=== PATIENT | female | born 1960 | race Caucasian/White ===

== ENCOUNTER → 2016-10-06 | Outpatient (CLI) | payer MEDICARE, OTHER ==
--- NOTE | 2016-10-06 09:04 | XR ---
EXAMINATION TYPE: XR lumbar spine 2 or 3V DATE OF EXAM: 10/06/2016 CLINICAL HISTORY: Low back pain for a few weeks. TECHNIQUE: Frontal and lateral images of the lumbar spine are obtained. COMPARISON: CT abdomen and pelvis September 01, 2014 FINDINGS: There are 5 lumbar type vertebral bodies identified. The lumbar spine shows straightened alignment without evidence of acute fracture or dislocation. Vertebral body heights are within normal limits. There is mild multilevel disc space narrowing. There is mild facet arthropathy in lower lum bar levels. An IVC filter overlies right L2 vertebra. Some vascular calcification of adjacent abdomin al aorta is present. IMPRESSION: Loss of normal lumbar lordosis with mild multilevel degenerative changes redemonstrated, no significant change from recent CT.
== END | disposition home or self-care (01) ==
LOC: RADXRMAIN 08:03
PROVIDERS: ATTEND Family Medicine
DX: M47.816 Spondylosis without myelopathy or radiculopathy, lumbar region (principal)
CPT/HCPCS: 72100

== ENCOUNTER 2016-11-01 17:54 | Emergency (ER) | payer MEDICARE, OTHER ==
[2016-11-01 17:58] VITALS: BP 117/70; PULSE 76; RESP 16; TEMP 98.4
[2016-11-01] MEDS ORDERED: KETOROLAC 60 MG/2 ML VIAL IM STA (18:46)
--- NOTE | 2016-11-01 18:46 | ED ---
General Adult HPI - General Chief complaint: Back Pain/Injury Stated complaint: Back pain Time Seen by Provider: 11/01/16 18:09 Source: patient, RN notes reviewed Mode of arrival: wheelchair Limitations: no limitations - History of Present Illness Initial comments: Patient 55-year-old female who presents emergency room today with chief complaint of chronic back pain. She does admit that she had an x-ray recently was not told results. States been expressing back pain for the last few months. States been taking Percocet along with ibuprofen at home with little relief the symptoms. Denies any bowel or bladder incontinence retention. Denies any saddle anesthesia. Patient is here with her who is also here for his chronic back pain to see if there is anything different that we can do. Patient denies any recent fever, chills, shortness of breath, chest pain , abdominal pain, nausea or vomiting, numbness or tingling, dysuria or hematuria , constipation or diarrhea, headaches or visual changes, or any other complaints. - Related Data Home Medications Medication Instructions Recorded Confirmed Atorvastatin [Lipitor] 20 mg PO DAILY 05/09/14 01/24/16 levETIRAcetam [Keppra] 750 mg PO Q12H 05/09/14 01/24/16 Lisinopril [Lisinopril] 2.5 mg PO DAILY 01/24/16 01/24/16 Previous Rx's Medication Instructions Recorded HYDROcodone/APAP 7.5-325MG [[place] 1 each PO Q4H PRN #60 tab 08/25/14 7.5] metFORMIN HCL [Glucophage] 1,000 mg PO BID-W/MEALS #60 tab 09/03/14 sitaGLIPtin [Januvia] 100 mg PO DAILY #30 tab 09/03/14 Cephalexin [Keflex] 500 mg PO Q12HR 5 Days 01/24/16 Baclofen 10 mg PO TID #20 tab 11/01/16 Allergies Allergy/AdvReac Type Severity Reaction Status Date / Time Iodinated Contrast Media - Allergy Itching Verified 11/01/16 17:58 Oral and [Iodinated Contrast Media - IV Dye] phenytoin sodium Allergy Rash/Hives. Verified 11/01/16 17:58 [From Dilantin] N & V phenytoin sodium extended Allergy Rash/Hives. Verified 11/01/16 17:58 [From Dilantin] N & V vancomycin Allergy Rash/Hives Verified 11/01/16 17:58 MYCIN ANTIBIOTICS Allergy Rash/Hives Uncoded 11/01/16 17:58 Review of Systems ROS Statement: Those systems with pertinent positive or pertinent negative responses have been documented in the HPI. ROS Other: All systems not noted in ROS Statement are negative. Past Medical History Past Medical History: Diabetes Mellitus, Hyperlipidemia, Hypertension Additional Past Medical History / Comment(s): HX CVA AND BRAIN ANERUYSM 2002, SOME MEMORY LOSS- STATES KRISTIAN IS ABLE TO SIGN OWN CONSENTS ; LAST SEIZURE >5 YR < 10 YRS AGO. RECENT RASH UNDER BREASTS, ABD APRON. STATES "HEART. FLATLINE X2 WHEN BRAIN ANEURYSM OCCURRED IN 2002",HIATAL HERNIA , BLEEDING WITH STOOLS. Last Myocardial Infarction Date:: 2002 History of Any Multi-Drug Resistant Organisms: None Reported Past Surgical History: Hernia Repair, Tubal Ligation Additional Past Surgical History / Comment(s): BRAIN STENT 2002. COLONOSCOPY 07/04/14,EGD, KYRA FUNDOPLASTY Past Anesthesia/Blood Transfusion Reactions: No Reported Reaction Past Psychological History: Anxiety, Depression Smoking Status: Current every day smoker Past Alcohol Use History: None Reported Past Drug Use History: None Reported - Past Family History Brother(s) Family Medical History: Cancer Sister(s) Family Medical History: Cancer General Exam - General Exam Comments Initial Comments: General: The patient is awake and alert, in no distress, and does not appear acutely ill. Eye: Pupils are equal, round and reactive to light, extra-ocular movements are intact. No nystagmus. There is normal conjunctiva bilaterally. No signs of icterus. Ears, nose, mouth and throat: There are moist mucous membranes and no oral lesions. Neck: The neck is supple, there is no tenderness or JVD. Cardiovascular: There is a regular rate and rhythm. No murmur, rub or gallop is appreciated. Respiratory: Lungs are clear to auscultation, respirations are non-labored, breath sounds are equal. No wheezes, stridor, rales, or rhonchi. Musculoskeletal: Normal ROM, no tenderness. Strength 5/5. Sensation intact. Pulses equal bilaterally 2+. Neurological: A&O x 3. CN II-XII intact, There are no obvious motor or sensory deficits. Coordination appears grossly intact. Speech is normal. Skin: Skin is warm and dry and no rashes or lesions are noted. Psychiatric: Cooperative, appropriate mood & affect, normal judgment. Limitations: no limitations Course Vital Signs 11/01/16 17:56 Temperature 98.4 F Pulse Rate 76 Respiratory 16 Rate Blood Pressure 117/70 O2 Sat by Pulse 96 Oximetry Medical Decision Making - Medical Decision Making Patient will be discharged home for chronic back pain. has requested to give her Toradol shot as she states that she did not take her ibuprofen today. Patient is advised that she needs to continue to follow-up with family doctor for further evaluation and possible MRI of her lower back for her symptoms. At this time is no new symptoms. There is no bowel or bladder incontinence retention. No saddle anesthesia. Patient will be discharged home. She be given a prescription for muscle relaxer to try. Advised that it may make her drowsy. Patient states understanding. Disposition Clinical Impression: Chronic back pain Disposition: HOME SELF-CARE Condition: Good Instructions: Chronic Back Pain (ED) Additional Instructions: Please use medication as discussed. Please be aware the muscle relaxant may make you drowsy. Please follow-up with family doctor in the next 2 days of symptoms have not improved. Please discuss further options of possible MRI. Please return to emergency room if the symptoms increase or worsen or for any other concerns. Prescriptions: Baclofen 10 mg PO TID #20 tab Referrals: Mat Lua MD [Primary Care Provider] - 1-2 days Time of Disposition: 18:45
== END 2016-11-01 19:29 | disposition home or self-care (01) ==
LOC: EC 17:54
DX: G89.29 Other chronic pain (principal); M54.9 Dorsalgia, unspecified; E78.5 Hyperlipidemia, unspecified; I10 Essential (primary) hypertension; F17.200 Nicotine dependence, unspecified, uncomplicated; Z79.899 Other long term (current) drug therapy; Z91.041 Radiographic dye allergy status; Z88.1 Allergy status to other antibiotic agents; Z88.8 Allergy status to other drugs, medicaments and biological substances
CPT/HCPCS: 99283; 96372; J1885

== ENCOUNTER → 2016-11-14 | Outpatient (CLI) | payer MEDICARE, OTHER ==
--- NOTE | 2016-11-14 12:52 | MR ---
EXAMINATION TYPE: MR lumbar spine wo con DATE OF EXAM: 11/14/2016 12:27 PM COMPARISON: NONE HISTORY: Back pain Multiplanar, MultiSpin echo imaging of the lumbar spine was performed. L1-L2: Normal disc appearance without desiccation. No herniation, protrusion or disc bulging. No ca nal stenosis is present. Foramina are patent bilaterally. L2-L3: There is mild disc desiccation noted. No herniation, protrusion or disc bulging. No canal huber nosis is present. Foramina are patent bilaterally. L3-L4: Normal disc appearance without desiccation. No herniation, protrusion or disc bulging. No ca nal stenosis is present. Foramina are patent bilaterally. L4-L5: Normal disc appearance without desiccation. No herniation, protrusion or disc bulging. No ca nal stenosis is present. Foramina are patent bilaterally. L5-S1: Mild disc desiccation with minimal posterior disc bulge. No herniation or protrusion identifie d. No canal stenosis is present. Foramina are patent bilaterally. Lumbar segments are intact. 5.2 cm right renal cyst has a simple appearance. Conus medullaris has a n ormal appearance. IMPRESSION: 1. Mild degenerative disc disease and minimal disc bulge as discussed.
== END | disposition home or self-care (01) ==
LOC: RADMRIMAIN 11:41
PROVIDERS: ATTEND Family Medicine
DX: M51.26 Other intervertebral disc displacement, lumbar region (principal); M51.36 Other intervertebral disc degeneration, lumbar region
CPT/HCPCS: 72148

== ENCOUNTER 2016-12-03 21:50 | Inpatient (IN) | payer MEDICARE, OTHER ==
--- NOTE | 2016-12-03 23:05 | ED ---
General Adult HPI - General Source: patient Mode of arrival: wheelchair Limitations: no limitations <Domi Gonzales - Last Filed: 12/04/16 01:39> <Manoj Echevarria - Last Filed: 12/04/16 01:57> - General Chief complaint: Skin/Abscess/Foreign Body Stated complaint: Rash and Back Pain Time Seen by Provider: 12/03/16 22:25 - History of Present Illness Initial comments: 55-year-old female patient presents to emergency department today for evaluation of a rash to her bilateral groin, and he beneath her pannus. The patient states that this rash started about 3 weeks ago. She has been treating with hydrocortisone cream, ketoconazole cream, and nystatin powder. The patient states that she has these medications from previous similar infections. 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 Patient states she did see her primary care physician 2 days ago for this, and was started on a 7 day course of Diflucan. Patient states that the rash seems to be spreading and is becoming more painful. He states the redness has moved up onto her abdomen. Patient denies any fever, chills, nausea, vomiting, vaginal itching, vaginal discharge, hematuria, dysuria, urinary urgency, or urinary frequency. Patient does have a history of diabetes. She is oral medications she she does not check her blood sugar. (Domi Gonzales) - Related Data Home Medications Medication Instructions Recorded Confirmed Atorvastatin [Lipitor] 20 mg PO DAILY 05/09/14 01/24/16 levETIRAcetam [Keppra] 750 mg PO Q12H 05/09/14 01/24/16 Lisinopril [Lisinopril] 2.5 mg PO DAILY 01/24/16 01/24/16 Previous Rx's Medication Instructions Recorded HYDROcodone/APAP 7.5-325MG [[place] 1 each PO Q4H PRN #60 tab 08/25/14 7.5] metFORMIN HCL [Glucophage] 1,000 mg PO BID-W/MEALS #60 tab 09/03/14 sitaGLIPtin [Januvia] 100 mg PO DAILY #30 tab 09/03/14 Cephalexin [Keflex] 500 mg PO Q12HR 5 Days 01/24/16 Baclofen 10 mg PO TID #20 tab 11/01/16 Allergies Allergy/AdvReac Type Severity Reaction Status Date / Time Iodinated Contrast- Oral and Allergy Itching Verified 12/03/16 22:06 IV Dye [Iodinated Contrast Media - IV Dye] phenytoin sodium Allergy Rash/Hives. Verified 12/03/16 22:06 [From Dilantin] N & V phenytoin sodium extended Allergy Rash/Hives. Verified 12/03/16 22:06 [From Dilantin] N & V vancomycin Allergy Rash/Hives Verified 12/03/16 22:06 MYCIN ANTIBIOTICS Allergy Rash/Hives Uncoded 11/01/16 17:58 Review of Systems ROS Other: All systems not noted in ROS Statement are negative. <Domi Gonzales - Last Filed: 12/04/16 01:39> ROS Other: All systems not noted in ROS Statement are negative. <Manoj Echevarria - Last Filed: 12/04/16 01:57> ROS Statement: Those systems with pertinent positive or pertinent negative responses have been documented in the HPI. Past Medical History Past Medical History: Diabetes Mellitus, Hyperlipidemia, Hypertension Additional Past Medical History / Comment(s): HX CVA AND BRAIN ANERUYSM 2002, SOME MEMORY LOSS- STATES KRISTIAN IS ABLE TO SIGN OWN CONSENTS ; LAST SEIZURE >5 YR < 10 YRS AGO. RECENT RASH UNDER BREASTS, ABD APRON. STATES "HEART. FLATLINE X2 WHEN BRAIN ANEURYSM OCCURRED IN 2002",HIATAL HERNIA , BLEEDING WITH STOOLS. Last Myocardial Infarction Date:: 2002 History of Any Multi-Drug Resistant Organisms: None Reported Past Surgical History: Hernia Repair, Tubal Ligation Additional Past Surgical History / Comment(s): BRAIN STENT 2002. COLONOSCOPY 07/04/14,EGD, KYRA FUNDOPLASTY Past Anesthesia/Blood Transfusion Reactions: No Reported Reaction Past Psychological History: Anxiety, Depression Smoking Status: Current every day smoker Past Alcohol Use History: None Reported Past Drug Use History: None Reported - Past Family History Brother(s) Family Medical History: Cancer Sister(s) Family Medical History: Cancer <Domi Gonzales - Last Filed: 12/04/16 01:39> General Exam Limitations: no limitations General appearance: alert, in no apparent distress Head exam: Present: atraumatic, normocephalic, normal inspection Eye exam: Present: normal appearance, PERRL, EOMI. Absent: scleral icterus, conjunctival injection, periorbital swelling ENT exam: Present: normal exam, mucous membranes moist Neck exam: Present: normal inspection. Absent: tenderness, meningismus, lymphadenopathy Respiratory exam: Present: normal lung sounds bilaterally. Absent: respiratory distress, wheezes, rales, rhonchi, stridor Cardiovascular Exam: Present: regular rate, normal rhythm, normal heart sounds. Absent: systolic murmur, diastolic murmur, rubs, gallop, clicks GI/Abdominal exam: Present: soft, normal bowel sounds, other (Patient exhibits extensive erythema, moist, macerated skin beneath the pannus with erythema extending up onto the abdomen. ). Absent: distended, tenderness, guarding, rebound, rigid Extremities exam: Present: other (Erythema and skin rash as described in the abdominal exam extends to bilateral groin) Back exam: Present: normal inspection Neurological exam: Present: alert, oriented X3, CN II-XII intact Psychiatric exam: Present: normal affect, normal mood Skin exam: Present: warm, dry, intact, normal color, rash (As previously described) <Domi Gonzales - Last Filed: 12/04/16 01:39> Course <Domi Gonzales - Last Filed: 12/04/16 01:39> <Manoj Echevarria - Last Filed: 12/04/16 01:57> Vital Signs 12/03/16 12/04/16 12/04/16 22:02 01:33 01:50 Temperature 97.9 F 97.6 F 97.9 F Pulse Rate 93 82 78 Respiratory 18 15 16 Rate Blood Pressure 119/74 157/70 128/78 O2 Sat by Pulse 96 99 99 Oximetry - Reevaluation(s) Reevaluation #1: 12/04/16 01:57 I did personally do a [id number] evaluation the patient and he is demonstrated evidence of cellulitis of the abdominal area below her panniculus. Patient will be admitted (Manoj Echevarria) Medical Decision Making - Lab Data Result diagrams: 12/04/16 00:38 12/04/16 00:38 <Domi Gonzales - Last Filed: 12/04/16 01:39> - Lab Data Result diagrams: 12/04/16 00:38 12/04/16 00:38 <Manoj Echevarria - Last Filed: 12/04/16 01:57> - Medical Decision Making 55-year-old female patient presented today for evaluation of a rash beneath her pannus and on her abdomen. Patient does appear to have a candidal infection to her pannus as well as a superimposed cellulitis over her abdomen. White blood cell count is elevated to 13.1. Patient was started on Ancef IV. Patient will be admitted to Dr. Lua's service for continued IV antibiotics as well as oral Diflucan and nystatin powder for the rash. (Domi Gonzales) - Lab Data Lab Results 12/04/16 12/04/16 Range/Units 00:38 00:38 WBC 13.4 H (3.8-10.6) k/uL RBC 4.51 (3.80-5.40) m/uL Hgb 14.0 (11.4-16.0) gm/dL Hct 42.9 (34.0-46.0) % MCV 95.2 (80.0-100.0) fL MCH 31.1 (25.0-35.0) pg MCHC 32.6 (31.0-37.0) g/dL RDW 15.0 (11.5-15.5) % Plt Count 295 (150-450) k/uL Neutrophils % 62 % Lymphocytes % 28 % Monocytes % 6 % Eosinophils % 3 % Basophils % 1 % Neutrophils # 8.3 H (1.3-7.7) k/uL Lymphocytes # 3.7 (1.0-4.8) k/uL Monocytes # 0.7 (0-1.0) k/uL Eosinophils # 0.4 (0-0.7) k/uL Basophils # 0.1 (0-0.2) k/uL Sodium 140 (137-145) mmol/L Potassium 4.1 (3.5-5.1) mmol/L Chloride 107 (98-107) mmol/L Carbon Dioxide 23 (22-30) mmol/L Anion Gap 10 mmol/L BUN 7 (7-17) mg/dL Creatinine 0.50 L (0.52-1.04) mg/dL Est GFR (MDRD) Af Amer >60 (>60 ml/min/1.73 sqM) Est GFR (MDRD) Non-Af >60 (>60 ml/min/1.73 sqM) Glucose 134 H (74-99) mg/dL Calcium 9.3 (8.4-10.2) mg/dL Total Bilirubin 0.6 (0.2-1.3) mg/dL AST 24 (14-36) U/L ALT 40 (9-52) U/L Alkaline Phosphatase 127 H (38-126) U/L Total Protein 7.4 (6.3-8.2) g/dL Albumin 3.8 (3.5-5.0) g/dL Disposition Decision to Admit Reason: Admit from EC Decision Date: 12/04/16 Decision Time: 01:35 <Domi Gonzales - Last Filed: 12/04/16 01:39> <Manoj Echevarria - Last Filed: 12/04/16 01:57> Clinical Impression: Cutaneous candidiasis, Panniculitis, Cellulitis Disposition: ADMITTED IP TO THIS HOSP
[2016-12-04] MEDS ORDERED: SODIUM CHLORIDE 0.9% 500 ML IV STA (00:01)
[2016-12-04] MEDS ORDERED: ceFAZolin 1,000 MG in DEXTROSE/WATER 1 50ML.BAG IVPB STA (00:03)
[2016-12-04] MEDS: ceFAZolin 1,000 MG in DEXTROSE/WATER 1 50ML.BAG IVPB SCH ×3 (00:36→16:30)
[2016-12-04 00:47] LABS: Basophils # (A) 0.1 k/uL (0-0.2); Basophils % (A) 1 %; CH 31.9; CHCM 33.6; Eosinophils # (A) 0.4 k/uL (0-0.7); Eosinophils % (A) 3 %; HCT 42.9 % (34.0-46.0); HDW 2.32; Luc # (Auto) 0.23; Luc % (Auto) 2; Lymphocytes # (A) 3.7 k/uL (1.0-4.8); Lymphocytes % (A) 28 %; MCH 31.1 pg (25.0-35.0); MCHC 32.6 g/dL (31.0-37.0); MCV 95.2 fL (80.0-100.0); Mean Platelet Volume 6.7; Monocytes # (A) 0.7 k/uL (0-1.0); Monocytes % (A) 6 %; Neutrophils # (A) 8.3 k/uL (1.3-7.7); Neutrophils % (A) 62 %; RBC 4.51 m/uL (3.80-5.40); WBC 13.4 k/uL (3.8-10.6); WBC (Perox) 12.59
[2016-12-04 00:57] LABS: ALT 40 U/L (9-52); AST 24 U/L (14-36); Alkaline Phosphatase 127 U/L (38-126); Anion Gap 10 mmol/L; Blood Urea Nitrogen 7 mg/dL (7-17); Calcium 9.3 mg/dL (8.4-10.2); Carbon Dioxide 23 mmol/L (22-30); Chloride 107 mmol/L (98-107); Glucose 134 mg/dL (74-99); Non-African American GFR(MDRD) >60 (>60 ml/min/1.73 sqM); Potassium 4.1 mmol/L (3.5-5.1); Sodium 140 mmol/L (137-145); Total Bilirubin 0.6 mg/dL (0.2-1.3); Total Protein 7.4 g/dL (6.3-8.2)
[2016-12-04] MEDS ORDERED: NALOXONE 0.4 MG/ML 1 ML VIAL IV PRN (01:30)
[2016-12-04 07:37] LABS: Glucose,Whole Blood 120 mg/dL (75-99)
[2016-12-04] MEDS: FLUCONAZOLE 150 MG TAB PO SCH (08:38)
[2016-12-04] MEDS: NYSTATIN 100,000 UNIT/GM POWD 15 GM TOPICAL SCH ×3 (08:38→22:37)
[2016-12-04 12:14] LABS: Glucose,Whole Blood 135 mg/dL (75-99)
[2016-12-04] MEDS: oxyCODONE-APAP 5-325MG 1 EACH TAB PO PRN ×2 (13:13→23:52)
[2016-12-04] MEDS: INSULIN LISPRO (humaLOG) 300 UNIT/3 ML VIAL SQ SCH ×3 (13:43→22:36)
[2016-12-04] MEDS ORDERED: TEMAZEPAM 15 MG CAP PO PRN (16:26)
[2016-12-04] MEDS ORDERED: ALPRAZolam 0.25 MG TAB PO PRN (16:26)
[2016-12-04 17:10] LABS: Glucose,Whole Blood 156 mg/dL (75-99)
[2016-12-04] MEDS ORDERED: INSULIN LISPRO (humaLOG) 300 UNIT/3 ML VIAL SQ SCH (17:30)
[2016-12-04 20:10] LABS: Glucose,Whole Blood 181 mg/dL (75-99)
[2016-12-04 21:41] LABS: Hemoglobin A1C 6.8 % (4.2-6.1)
[2016-12-04] MEDS: HEPARIN SODIUM,PORCINE 5,000 UNIT/ML 1 ML VIAL SQ SCH (22:37)
[2016-12-05] MEDS: ceFAZolin 1,000 MG in DEXTROSE/WATER 1 50ML.BAG IVPB SCH ×4 (02:58→23:11)
[2016-12-05 07:32] LABS: Glucose,Whole Blood 155 mg/dL (75-99)
[2016-12-05 07:35] LABS: Basophils % (A) 0 %; CH 31.4; CHCM 33.4; Eosinophils # (A) 0.3 k/uL (0-0.7); Eosinophils % (A) 3 %; HDW 2.38; HGB 14.1 gm/dL (11.4-16.0); Luc # (Auto) 0.17; Luc % (Auto) 2; Lymphocytes # (A) 2.4 k/uL (1.0-4.8); Lymphocytes % (A) 26 %; MCH 32.4 pg (25.0-35.0); MCHC 34.3 g/dL (31.0-37.0); MCV 94.5 fL (80.0-100.0); Mean Platelet Volume 6.7; Monocytes # (A) 0.4 k/uL (0-1.0); Monocytes % (A) 5 %; Neutrophils # (A) 5.8 k/uL (1.3-7.7); Neutrophils % (A) 64 %; RBC 4.34 m/uL (3.80-5.40); RDW 14.3 % (11.5-15.5); WBC 9.1 k/uL (3.8-10.6); WBC (Perox) 8.93
[2016-12-05] MEDS: NYSTATIN 100,000 UNIT/GM POWD 15 GM TOPICAL SCH ×3 (08:07→21:05)
[2016-12-05] MEDS: HEPARIN SODIUM,PORCINE 5,000 UNIT/ML 1 ML VIAL SQ SCH ×2 (08:07→21:03)
[2016-12-05] MEDS: ATORVASTATIN 20 MG TAB PO SCH (08:08)
[2016-12-05] MEDS: metFORMIN 500 MG TAB PO SCH ×2 (08:08→17:22)
[2016-12-05] MEDS: LINAGLIPTIN 5 MG TABLET PO SCH (08:08)
[2016-12-05] MEDS: LISINOPRIL 2.5 MG TAB PO SCH (08:08)
[2016-12-05] MEDS: FLUCONAZOLE 150 MG TAB PO SCH (08:08)
[2016-12-05] MEDS: INSULIN LISPRO (humaLOG) 300 UNIT/3 ML VIAL SQ SCH ×4 (08:11→21:26)
--- NOTE | 2016-12-05 08:27 | P.HPIM ---
History of Present Illness H&P Date: 12/05/16 Review of Systems Constitutional: Reports fever Eyes: denies blurred vision, denies pain Ears, nose, mouth and throat: Denies headache, Denies sore throat Cardiovascular: Denies chest pain, Denies shortness of breath Respiratory: Denies cough Gastrointestinal: Denies abdominal pain, Denies diarrhea, Denies nausea, Denies vomiting Genitourinary: Denies dysuria, Denies hematuria Integumentary: Reports rash, Reports sores Past Medical History Past Medical History: Diabetes Mellitus, Hyperlipidemia, Hypertension Additional Past Medical History / Comment(s): HX CVA AND BRAIN ANERUYSM 2002, SOME MEMORY LOSS- STATES KRISTIAN IS ABLE TO SIGN OWN CONSENTS ; LAST SEIZURE >5 YR < 10 YRS AGO. RECENT RASH UNDER BREASTS, ABD APRON. STATES "HEART. FLATLINE X2 WHEN BRAIN ANEURYSM OCCURRED IN 2002",HIATAL HERNIA , BLEEDING WITH STOOLS. Last Myocardial Infarction Date:: 2002 History of Any Multi-Drug Resistant Organisms: None Reported Past Surgical History: Hernia Repair, Tubal Ligation Additional Past Surgical History / Comment(s): BRAIN STENT 2002. COLONOSCOPY 07/04/14,EGD, KYRA FUNDOPLASTY Past Anesthesia/Blood Transfusion Reactions: No Reported Reaction Past Psychological History: Anxiety, Depression Smoking Status: Current every day smoker Past Alcohol Use History: None Reported Additional Past Alcohol Use History / Comment(s): STARTED SMOKING AT [employer]OX 18 Past Drug Use History: None Reported - Past Family History Brother(s) Family Medical History: Cancer Sister(s) Family Medical History: Cancer Medications and Allergies Home Medications Medication Instructions Recorded Confirmed Type Atorvastatin [Lipitor] 20 mg PO DAILY 05/09/14 12/04/16 History levETIRAcetam [Keppra] 750 mg PO Q12H 05/09/14 12/04/16 History Lisinopril [Lisinopril] 2.5 mg PO DAILY 01/24/16 12/04/16 History oxyCODONE-APAP 5-325MG [Percocet 1 tab PO Q6HR PRN 12/04/16 12/04/16 History 5-325 mg] sitaGLIPtin PHOS/metFORMIN HCL 1 tab PO DAILY 12/04/16 12/04/16 History [Janumet Xr 100-1,000 mg Tablet] Allergies Allergy/AdvReac Type Severity Reaction Status Date / Time Iodinated Contrast- Oral and Allergy Itching Verified 12/04/16 08:53 IV Dye [Iodinated Contrast Media - IV Dye] phenytoin sodium Allergy Rash/Hives. Verified 12/04/16 08:53 [From Dilantin] N & V phenytoin sodium extended Allergy Rash/Hives. Verified 12/04/16 08:53 [From Dilantin] N & V vancomycin Allergy Rash/Hives Verified 12/04/16 08:53 MYCIN ANTIBIOTICS Allergy Rash/Hives Uncoded 11/01/16 17:58 Physical Exam Vitals: Vital Signs Temp Pulse Resp BP Pulse Ox 12/05/16 07:00 96.8 F L 79 16 148/78 96 12/05/16 02:27 98 F 77 16 110/71 91 L 12/04/16 19:00 97.0 F L 83 16 127/72 96 12/04/16 15:00 98.0 F 99 16 111/72 95 Intake and Output 12/04/16 12/05/16 12/05/16 22:59 06:59 14:59 Intake Total 530 1280 Balance 530 1280 Intake: Intake, IV Titration 50 800 Amount ceFAZolin 1,000 mg In 50 800 Dextrose/Water 1 50ml.bag @ 100 mls/hr IVPB Q8HR [facility] Rx#:[id number] Oral 480 480 Other: Voiding Method Toilet - Constitutional General appearance: obese - EENT Eyes: EOMI - Neck Neck: no lymphadenopathy - Respiratory Respiratory: bilateral: CTA - Cardiovascular Rhythm: regular Heart sounds: normal: S1, S2 - Gastrointestinal General gastrointestinal: soft, no tenderness - Integumentary Right inguinal panniculitis Integumentary: cellulitis - Neurologic Neurologic: CNII-XII intact Results CBC & Chem 7: 12/05/16 07:07 12/04/16 00:38 Labs: Abnormal Lab Results - Last 24 Hours (Table) 12/04/16 12/04/16 12/04/16 Range/Units 00:38 12:09 17:00 POC Glucose (mg/dL) 135 H 156 H (75-99) mg/dL Hemoglobin A1c 6.8 H (4.2-6.1) % 12/04/16 12/05/16 Range/Units 20:06 07:24 POC Glucose (mg/dL) 181 H 155 H (75-99) mg/dL Hemoglobin A1c (4.2-6.1) % Microbiology - Last 24 Hours (Table) 12/04/16 00:38 Blood Culture - Preliminary Blood No Growth after 24 hours Thrombosis Risk Factor Assmnt - Choose All That Apply Each Factor Represents 1 point: Acute CA, Age 41-60 years, History of prior major surgery (<1month), Obesity (BMI >25) Other congenital or acquired thrombophilia - If yes, enter type in comment: No Each Risk Factor Represents 5 Points: Major surgery lasting over 3 hours Thrombosis Risk Factor Assessment Total Risk Factor Score: 9 Thrombosis Risk Factor Assessment Level: High Risk Assessment and Plan (1) Cellulitis Status: Acute (2) Cutaneous candidiasis Status: Acute (3) Panniculitis Status: Acute (4) CVA, old, cognitive deficits Status: Acute (5) Diabetes Status: Acute (6) GERD (gastroesophageal reflux disease) Status: Acute Plan: We'll going continue appropriate topical and IV antibiotic treatment. Place on sliding scale if necessary. Check CBC and CMP in a.m. We'll go ahead and consult infectious disease necessary.
[2016-12-05] MEDS ORDERED: ONDANSETRON 4 MG/2 ML VIAL IVP PRN (08:28)
[2016-12-05 08:45] LABS: Anion Gap 11 mmol/L; Blood Urea Nitrogen 6 mg/dL (7-17); Calcium 8.9 mg/dL (8.4-10.2); Carbon Dioxide 21 mmol/L (22-30); Chloride 111 mmol/L (98-107); Glucose 136 mg/dL (74-99); Non-African American GFR(MDRD) >60 (>60 ml/min/1.73 sqM); Potassium 3.9 mmol/L (3.5-5.1); Sodium 143 mmol/L (137-145)
[2016-12-05 10:35] VITALS: BMI 34.8
[2016-12-05 11:43] LABS: Glucose,Whole Blood 181 mg/dL (75-99)
[2016-12-05] MEDS: oxyCODONE-APAP 5-325MG 1 EACH TAB PO PRN (13:49)
--- NOTE | 2016-12-05 14:59 | HP ---
CHIEF COMPLAINT: Pain and swelling and cellulitis of both groins. HISTORY OF PRESENT ILLNESS: This 55-year-old woman with the past medical history of multiple medical problems including diabetes mellitus, hypertension, hyperlipidemia, being followed by Dr. Lua in the outpatient setting, was not feeling well over the past several weeks. The patient had a significant rash on both groins beneath her pannus and because of lack of improvement with multiple medications, the patient was admitted to [facility] for further evaluation and treatment. There is no history of any fever or rigors. No history of headache, loss of consciousness or seizures. PAST MEDICAL HISTORY: History of diabetes, hypertension, hyperlipidemia, history of brain aneurysm. MEDICATIONS PRIOR TO ADMISSION: Home medications are: 1. Janumet one p.o. daily. 2. Oxycodone one tablet q6h p.r.n. 3. Keppra 750 p.o. b.i.d. 4. Lisinopril 2.5 mg. 5. Lipitor 20 mg p.o. daily. ALLERGIES: ( ) CONTRAST, PHENYTOIN, VANCOMYCIN, MYCIN ANTIBIOTICS. FAMILY HISTORY: History of cancer in the family. SOCIAL HISTORY: History of smoking. Currently no history of alcohol intake. REVIEW OF SYSTEMS: ENT: No diminished hearing or vision. CARDIOVASCULAR: No angina or palpitation. RESPIRATORY: No cough. GI: As mentioned earlier. : No dysuria. NERVOUS SYSTEM: No numbness or weakness. IMMUNOLOGY/ALLERGY: No asthma, hayfever. MUSCULOSKELETAL: As mentioned earlier. HEMATOLOGY: No history of anemia. ENDOCRINE: Diabetes. CONSTITUTIONAL: As mentioned earlier. PSYCHIATRIC: As mentioned earlier. PHYSICAL EXAMINATION: Alert and oriented x3. Pulse 67, blood pressure 124/64, respirations 15, temperature 98.2, pulse ox 97% on room air. HEENT: Conjunctivae normal. Oral mucosa moist. NECK: No jugular venous distention. No thyroid enlargement, no lymph node enlargement. CARDIOVASCULAR: S1/.S2. RESPIRATIONS: Diminished breath sounds at the bases. A few scattered rhonchi. No crackles.. ABDOMEN: Soft. LEGS: No edema. NERVOUS SYSTEM: No focal weakness. LYMPHATICS. No lymph node palpable in neck or axillae. SKIN: Abdomen, extensive erythema, tenderness and rash in the intertrigo folds present in both groins area. LABS: WBC 13.4. Glucose noted. ASSESSMENT: 1. Acute bilateral intertrigo candidiasis with cellulitis. 2. Diabetes mellitus. 3. Hypertension. 4. Hyperlipidemia. 5. Anxiety and depression. RECOMMENDATIONS AND DISCUSSION: This 55-year-old woman presented with multiple complex medical issues, will monitor the patient closely, continue current medication, continue symptomatic treatment. Otherwise, I recommend a combination of antibiotics and antifungals. Continue the rest of the medications. Dr. Lua will follow tomorrow. Further recommendations to follow. MTDD
[2016-12-05 17:07] LABS: Glucose,Whole Blood 107 mg/dL (75-99)
[2016-12-05 21:15] LABS: Glucose,Whole Blood 122 mg/dL (75-99)
[2016-12-06 06:54] LABS: Glucose,Whole Blood 118 mg/dL (75-99)
[2016-12-06 07:26] LABS: CH 31.1; CHCM 32.5; HCT 41.9 % (34.0-46.0); HGB 13.7 gm/dL (11.4-16.0); MCH 31.4 pg (25.0-35.0); MCHC 32.8 g/dL (31.0-37.0); MCV 95.9 fL (80.0-100.0); Mean Platelet Volume 6.5; RBC 4.37 m/uL (3.80-5.40); RDW 14.2 % (11.5-15.5); WBC 9.3 k/uL (3.8-10.6)
[2016-12-06] MEDS: INSULIN LISPRO (humaLOG) 300 UNIT/3 ML VIAL SQ SCH ×4 (08:02→21:14)
[2016-12-06 08:04] LABS: ALT 35 U/L (9-52); AST 23 U/L (14-36); Alkaline Phosphatase 110 U/L (38-126); Anion Gap 9 mmol/L; Blood Urea Nitrogen 7 mg/dL (7-17); Calcium 9.3 mg/dL (8.4-10.2); Carbon Dioxide 24 mmol/L (22-30); Chloride 110 mmol/L (98-107); Glucose 113 mg/dL (74-99); Non-African American GFR(MDRD) >60 (>60 ml/min/1.73 sqM); Potassium 4.2 mmol/L (3.5-5.1); Sodium 143 mmol/L (137-145); Total Bilirubin 0.3 mg/dL (0.2-1.3)
--- NOTE | 2016-12-06 08:44 | P.PN ---
Objective - Vital Signs Vital signs: Vital Signs Temp 97.1 F L 12/06/16 02:51 Pulse 68 12/06/16 02:51 Resp 16 12/06/16 02:51 BP 131/65 12/06/16 02:51 Pulse Ox 98 12/06/16 02:51 Intake & Output 12/05/16 12/06/16 12/06/16 18:59 06:59 18:59 Intake Total 487 Balance 487 Weight 80.9 kg Intake: Intake, IV Titration 50 Amount ceFAZolin 1,000 mg In 50 Dextrose/Water 1 50ml.bag @ 100 mls/hr IVPB Q8HR VICKY Rx#:[id number] Oral 437 Other: Voiding Method Toilet # Voids 4 1 - Constitutional General appearance: Present: obese - EENT Eyes: Absent: abnormal pupil - Integumentary Integumentary Comment(s): The patient has intertriginous rash and also a new finding under the right breast. Do feel that it is candidiasis - Neurologic Neurologic: Present: CNII-XII intact - Labs CBC & Chem 7: 12/06/16 06:56 12/06/16 06:56 Labs: Abnormal Lab Results - Last 24 Hours (Table) 12/05/16 12/05/16 12/05/16 Range/Units 07:07 11:41 16:59 Chloride 111 H (98-107) mmol/L Carbon Dioxide 21 L (22-30) mmol/L BUN 6 L (7-17) mg/dL Creatinine 0.41 L (0.52-1.04) mg/dL Glucose 136 H (74-99) mg/dL POC Glucose (mg/dL) 181 H 107 H (75-99) mg/dL 12/05/16 12/06/16 12/06/16 Range/Units 21:10 06:47 06:56 Chloride 110 H (98-107) mmol/L Carbon Dioxide (22-30) mmol/L BUN (7-17) mg/dL Creatinine 0.47 L (0.52-1.04) mg/dL Glucose 113 H (74-99) mg/dL POC Glucose (mg/dL) 122 H 118 H (75-99) mg/dL Microbiology - Last 24 Hours (Table) 12/04/16 00:38 Blood Culture - Preliminary Blood No Growth after 48 hours Assessment and Plan (1) Cellulitis Status: Acute (2) Cutaneous candidiasis Status: Acute (3) Panniculitis Status: Acute (4) CVA, old, cognitive deficits Status: Acute (5) Diabetes Status: Acute (6) GERD (gastroesophageal reflux disease) Status: Acute Plan: Continue with nystatin. Pain control with Percocet at this time. We'll continue to follow. Hopefully we can discharge in the next 2-3 days. Check CBC and CMP in a.m. Time with Patient: Less than 30
[2016-12-06] MEDS: metFORMIN 500 MG TAB PO SCH ×2 (09:25→20:00)
[2016-12-06] MEDS: LINAGLIPTIN 5 MG TABLET PO SCH (09:25)
[2016-12-06] MEDS: ceFAZolin 1,000 MG in DEXTROSE/WATER 1 50ML.BAG IVPB SCH ×2 (09:25→16:56)
[2016-12-06] MEDS: FLUCONAZOLE 150 MG TAB PO SCH (09:26)
[2016-12-06] MEDS: LISINOPRIL 2.5 MG TAB PO SCH (09:26)
[2016-12-06] MEDS: NYSTATIN 100,000 UNIT/GM POWD 15 GM TOPICAL SCH ×3 (09:26→21:15)
[2016-12-06] MEDS: HEPARIN SODIUM,PORCINE 5,000 UNIT/ML 1 ML VIAL SQ SCH ×2 (09:26→20:23)
[2016-12-06] MEDS: ATORVASTATIN 20 MG TAB PO SCH (09:26)
[2016-12-06] MEDS: oxyCODONE-APAP 5-325MG 1 EACH TAB PO PRN (09:46)
[2016-12-06 12:09] LABS: Glucose,Whole Blood 82 mg/dL (75-99)
[2016-12-06 16:32] LABS: Glucose,Whole Blood 185 mg/dL (75-99)
[2016-12-06 20:49] LABS: Glucose,Whole Blood 131 mg/dL (75-99)
[2016-12-07] MEDS: ceFAZolin 1,000 MG in DEXTROSE/WATER 1 50ML.BAG IVPB SCH ×4 (00:06→23:42)
[2016-12-07 07:13] LABS: Glucose,Whole Blood 181 mg/dL (75-99)
[2016-12-07 07:28] LABS: CH 31.8; CHCM 33.2; HCT 44.5 % (34.0-46.0); HDW 2.32; HGB 14.1 gm/dL (11.4-16.0); MCH 30.5 pg (25.0-35.0); MCHC 31.6 g/dL (31.0-37.0); MCV 96.4 fL (80.0-100.0); Mean Platelet Volume 6.7; RBC 4.62 m/uL (3.80-5.40); RDW 14.8 % (11.5-15.5); WBC 8.8 k/uL (3.8-10.6)
[2016-12-07 07:43] LABS: ALT 40 U/L (9-52); AST 25 U/L (14-36); Alkaline Phosphatase 118 U/L (38-126); Anion Gap 13 mmol/L; Blood Urea Nitrogen 7 mg/dL (7-17); Calcium 9.2 mg/dL (8.4-10.2); Carbon Dioxide 21 mmol/L (22-30); Chloride 107 mmol/L (98-107); Glucose 166 mg/dL (74-99); Non-African American GFR(MDRD) >60 (>60 ml/min/1.73 sqM); Sodium 141 mmol/L (137-145); Total Bilirubin 0.4 mg/dL (0.2-1.3); Total Protein 7.4 g/dL (6.3-8.2)
[2016-12-07] MEDS: INSULIN LISPRO (humaLOG) 300 UNIT/3 ML VIAL SQ SCH ×4 (09:06→20:45)
[2016-12-07] MEDS: HEPARIN SODIUM,PORCINE 5,000 UNIT/ML 1 ML VIAL SQ SCH ×2 (09:08→20:45)
[2016-12-07] MEDS: LINAGLIPTIN 5 MG TABLET PO SCH (09:08)
[2016-12-07] MEDS: NYSTATIN 100,000 UNIT/GM POWD 15 GM TOPICAL SCH ×3 (09:09→20:46)
[2016-12-07] MEDS: metFORMIN 500 MG TAB PO SCH ×2 (09:09→18:27)
[2016-12-07] MEDS: ATORVASTATIN 20 MG TAB PO SCH (09:10)
[2016-12-07] MEDS: FLUCONAZOLE 150 MG TAB PO SCH (09:10)
[2016-12-07] MEDS: LISINOPRIL 2.5 MG TAB PO SCH (09:10)
[2016-12-07 11:28] LABS: Glucose,Whole Blood 127 mg/dL (75-99)
[2016-12-07] MEDS: oxyCODONE-APAP 5-325MG 1 EACH TAB PO PRN (11:46)
[2016-12-07 17:05] LABS: Glucose,Whole Blood 131 mg/dL (75-99)
[2016-12-07 20:45] LABS: Glucose,Whole Blood 163 mg/dL (75-99)
[2016-12-08 07:32] LABS: Glucose,Whole Blood 115 mg/dL (75-99)
[2016-12-08] MEDS: INSULIN LISPRO (humaLOG) 300 UNIT/3 ML VIAL SQ SCH ×4 (08:06→21:54)
[2016-12-08] MEDS: HEPARIN SODIUM,PORCINE 5,000 UNIT/ML 1 ML VIAL SQ SCH ×2 (08:12→21:56)
[2016-12-08] MEDS: metFORMIN 500 MG TAB PO SCH ×2 (08:13→17:58)
[2016-12-08] MEDS: FLUCONAZOLE 150 MG TAB PO SCH (08:13)
[2016-12-08] MEDS: NYSTATIN 100,000 UNIT/GM POWD 15 GM TOPICAL SCH ×3 (08:13→21:56)
[2016-12-08] MEDS: LINAGLIPTIN 5 MG TABLET PO SCH (08:13)
[2016-12-08] MEDS: ATORVASTATIN 20 MG TAB PO SCH (08:13)
[2016-12-08] MEDS: LISINOPRIL 2.5 MG TAB PO SCH (08:13)
[2016-12-08] MEDS: ceFAZolin 1,000 MG in DEXTROSE/WATER 1 50ML.BAG IVPB SCH ×2 (08:50→17:07)
[2016-12-08] MEDS: oxyCODONE-APAP 5-325MG 1 EACH TAB PO PRN (10:53)
[2016-12-08 11:32] LABS: Glucose,Whole Blood 64 mg/dL (75-99)
[2016-12-08 11:38] LABS: Glucose,Whole Blood 78 mg/dL (75-99)
[2016-12-08 16:16] LABS: Glucose,Whole Blood 158 mg/dL (75-99)
--- NOTE | 2016-12-08 19:39 | P.PN ---
Subjective Date of service 12/08/2016 Progress note being dictated for Dr. Velez Interval history: This is a 56-year-old female admitted with panniculitis, breast cellulitis and multiple other medical issues. Maintained on ceftezole and, Diflucan and Mycostatin powder. Significant clinical improvement. This morning, after consuming approximately 50% of breakfast, had a hypoglycemic episode, symptomatic, received OJ and stabilized. Also complained of lightheadedness, dizziness after receiving pain medication. Denies chest pain, palpitations or increasing shortness of breath. Objective - Vital Signs Vital signs: Vital Signs Temp 97.4 F L 12/08/16 13:56 Pulse 63 12/08/16 13:56 Resp 18 12/08/16 13:56 BP 112/66 12/08/16 13:56 Pulse Ox 94 L 12/08/16 13:56 Intake & Output 12/08/16 12/08/16 12/09/16 06:59 18:59 06:59 Intake Total 880 1320 Balance 880 1320 Intake: Oral 880 1320 Other: Voiding Method Toilet # Voids 4 2 - Exam PHYSICAL EXAM: VITAL SIGNS: [As above sitting up in chair, no acute distress] GENERAL: [] HEENT: [Pupils equal conjunctiva normal. Oral mucosa moist] NECK: [Supple, no JVD] RESPIRATORY EFFORT:[ Normal] LUNGS: [Clear, no wheezes rhonchi or crackles] CARDIOVASCULAR[ regular S1 and S2, no murmurs rubs or gallops] GI: [Abdomen soft, nontender, positive bowel sounds.] PSYCH: [Alert and oriented -3, mood and affect normal.] SKIN: [Cellulitis, candidiasis appearing rash under breasts, Groins/ panus area minimal erythema /pinkness, minimally tender.] NEURO: No focal deficits - Labs CBC & Chem 7: 12/07/16 06:57 12/07/16 06:57 Labs: Abnormal Lab Results - Last 24 Hours (Table) 12/07/16 12/08/16 12/08/16 Range/Units 20:22 07:08 11:20 POC Glucose (mg/dL) 163 H 115 H 64 L (75-99) mg/dL 12/08/16 Range/Units 16:09 POC Glucose (mg/dL) 158 H (75-99) mg/dL Microbiology - Last 24 Hours (Table) 12/04/16 00:38 Blood Culture - Preliminary Blood No Growth after 96 hours Assessment and Plan Plan: (1) Cellulitis Status: Acute (2) Cutaneous candidiasis Status: Acute (3) Panniculitis Status: Acute (4) CVA, old, cognitive deficits Status: Acute (5) Diabetes Status: Acute (6) GERD (gastroesophageal reflux disease) Status: Acute Plan: Continue on current medication regime , antibiotics, nystatin ,monitoring and symptomatic treatment. Orthostatic vital signs were ordered every shift given complaints of lightheadedness and dizziness. Pain medication dose decreased. Metformin discontinued. Close monitoring of Accu-Cheks. Dietary consult. Discharge planning in progress for tomorrow. The impression and plan of care has been dictated as directed. : I performed a H&P examination of this patient and discussed the same with the dictator. I agree with the dictator's note. Any additional findings/opinions/ etc. will be noted.
[2016-12-08 20:15] VITALS: RESP 16
[2016-12-08 20:21] LABS: Glucose,Whole Blood 128 mg/dL (75-99)
[2016-12-08] MEDS: HYDROcodone/APAP 15 ML SOLUTION PO PRN (22:06)
[2016-12-09] MEDS: ceFAZolin 1,000 MG in DEXTROSE/WATER 1 50ML.BAG IVPB SCH ×2 (00:58→09:25)
[2016-12-09 07:16] LABS: Glucose,Whole Blood 114 mg/dL (75-99)
[2016-12-09] MEDS: INSULIN LISPRO (humaLOG) 300 UNIT/3 ML VIAL SQ SCH ×2 (07:47→12:19)
[2016-12-09] MEDS: ATORVASTATIN 20 MG TAB PO SCH (09:08)
[2016-12-09] MEDS: HEPARIN SODIUM,PORCINE 5,000 UNIT/ML 1 ML VIAL SQ SCH (09:08)
[2016-12-09] MEDS: LINAGLIPTIN 5 MG TABLET PO SCH (09:08)
[2016-12-09] MEDS: LISINOPRIL 2.5 MG TAB PO SCH (09:08)
[2016-12-09] MEDS: NYSTATIN 100,000 UNIT/GM POWD 15 GM TOPICAL SCH (09:09)
[2016-12-09] MEDS: FLUCONAZOLE 150 MG TAB PO SCH (09:09)
[2016-12-09 11:47] LABS: Glucose,Whole Blood 82 mg/dL (75-99)
[2016-12-09] MEDS: HYDROcodone/APAP 15 ML SOLUTION PO PRN (12:51)
--- NOTE | 2016-12-09 15:34 | P.DS ---
Providers Date of admission: 12/04/16 01:37 Attending physician: Mat Lua Consults: 12/09/16 14:39 Consult Physician Routine Consulting Provider: Eliceo Perry Consult Reason/Comments: Cellulitis, panniculitis Do you want consulting provider notified?: Yes Primary care physician: Mat Lua [facility] Course: 56-year-old female admitted with panniculitis, breast cellulitis and multiple other medical issues. Maintained on ceftezole and, Diflucan and Mycostatin powder. Significant clinical improvement. This morning, after consuming approximately 50% of breakfast, had a hypoglycemic episode, symptomatic, received OJ and stabilized. Also complained of lightheadedness, dizziness after receiving pain medication. 12/09/2016 Patient wanted to be discharged patient still has the lightest of the breast as well as fungal infection probably intertrigo under the breast as well as under the abdomen extensive counseling was provided and regarding the local care keeping it dry. Patient will be discharged on nystatin powder along with Keflex patient is also on fluconazole will be discharged on that as well and patient will follow-up with the infectious disease. And primary care physician as an outpatient. Denies chest pain, palpitations or increasing shortness of breath. HEENT: [Pupils equal conjunctiva normal. Oral mucosa moist] NECK: [Supple, no JVD] RESPIRATORY EFFORT:[ Normal] LUNGS: [Clear, no wheezes rhonchi or crackles] CARDIOVASCULAR[ regular S1 and S2, no murmurs rubs or gallops] GI: [Abdomen soft, nontender, positive bowel sounds.] PSYCH: [Alert and oriented -3, mood and affect normal.] SKIN: [Cellulitis, candidiasis appearing rash under breasts, Groins/ panus area minimal erythema /pinkness, minimally tender.] NEURO: No focal deficits (1) Cellulitis Status: Acute (2) Cutaneous candidiasis Status: Acute (3) Panniculitis Status: Acute (4) CVA, old, cognitive deficits Status: Acute (5) Diabetes Status: Acute (6) GERD (gastroesophageal reflux disease) Status: Acute Plan - Discharge Summary New Discharge Prescriptions: New Cephalexin [Keflex] 500 mg PO Q8HR #21 cap Fluconazole [Diflucan] 150 mg PO DAILY #10 tab Nystatin 100,000 Unit/gm Powd [Mycostatin Powder] 1 applic TOPICAL TID #10 day Continue levETIRAcetam [Keppra] 750 mg PO Q12H Atorvastatin [Lipitor] 20 mg PO DAILY Lisinopril 2.5 mg PO DAILY sitaGLIPtin PHOS/metFORMIN HCL [Janumet Xr 100-1,000 mg Tablet] 1 tab PO DAILY oxyCODONE-APAP 5-325MG [Percocet 5-325 mg] 1 tab PO Q6HR PRN PRN Reason: Pain Discharge Medication List Atorvastatin [Lipitor] 20 mg PO DAILY 05/09/14 [History] levETIRAcetam [Keppra] 750 mg PO Q12H 05/09/14 [History] Lisinopril 2.5 mg PO DAILY 01/24/16 [History] oxyCODONE-APAP 5-325MG [Percocet 5-325 mg] 1 tab PO Q6HR PRN 12/04/16 [History] sitaGLIPtin PHOS/metFORMIN HCL [Janumet Xr 100-1,000 mg Tablet] 1 tab PO DAILY 12/04/16 [History] Cephalexin [Keflex] 500 mg PO Q8HR #21 cap 12/09/16 [Rx] Fluconazole [Diflucan] 150 mg PO DAILY #10 tab 12/09/16 [Rx] Nystatin 100,000 Unit/gm Powd [Mycostatin Powder] 1 applic TOPICAL TID #10 day 12/09/16 [Rx] Follow up Appointment(s)/Referral(s): Mat Lua MD [Primary Care Provider] - 3 Days (Please call to make an appointment) [facility], [NON-STAFF] - As Needed Eliceo Perry MD [STAFF PHYSICIAN] - 12/15/16 9:30 am Discharge Disposition: HOME SELF-CARE
[2016-12-09 15:42] VITALS: BP 97/67; PULSE 98; TEMP 97.9
== END 2016-12-09 16:49 | disposition home health service (06) | DRG 603 ==
LOC: EC 21:50 → 3SUR 12-04 01:37
PROVIDERS: ADMIT Family Medicine; ATTEND Family Medicine
DX: L03.311 Cellulitis of abdominal wall (principal); E11.649 Type 2 diabetes mellitus with hypoglycemia without coma; B37.2 Candidiasis of skin and nail; F17.200 Nicotine dependence, unspecified, uncomplicated; F32.9 Major depressive disorder, single episode, unspecified; I10 Essential (primary) hypertension; E78.5 Hyperlipidemia, unspecified; F41.9 Anxiety disorder, unspecified; I25.2 Old myocardial infarction; K21.9 Gastro-esophageal reflux disease without esophagitis; L30.4 Erythema intertrigo; M79.3 Panniculitis, unspecified; K44.9 Diaphragmatic hernia without obstruction or gangrene; I69.919 Unspecified symptoms and signs involving cognitive functions following unspecified cerebrovascular disease; Z79.899 Other long term (current) drug therapy; Z79.84 Long term (current) use of oral hypoglycemic drugs; Z88.8 Allergy status to other drugs, medicaments and biological substances; Z88.1 Allergy status to other antibiotic agents; Z91.041 Radiographic dye allergy status
CPT/HCPCS: 36415; 80048; 80053; 80177; 83036; 85025; 85027; 87040

== ENCOUNTER → 2017-01-25 | Outpatient (CLI) | payer MEDICARE, OTHER ==
[2017-01-25 14:08] VITALS: BP 115/57; PULSE 81; RESP 18; TEMP 97.8
--- NOTE | 2017-01-25 14:30 | P.HPIM ---
History of Present Illness H&P Date: 01/25/17 Chief Complaint: low back pain This is a 56-year-old patient referred by Dr. Lua for chronic pain in low back and mid-back with some radiation to the hips. Patient has been taking medications from primary care physician including Percocet medications with some relief. Patient denies adverse drug effects from medications. Patient also denies new-onset weakness, bowel/bladder incontinence, or any other signs or symptoms of cauda equina syndrome. There are no signs of acute intoxication, and no indications of medication diversion or overuse. Patient notes that pain worsens significantly with standing and walking, and improves with rest and medication. Patient has used several types of medications for pain, including NSAIDS, OPIOIDS, TRAMADOL, ANTIDEPRESSANTS, and BENZODIAZEPINES. Patient HAS NOT had surgery. Patient HAS NOT had injections previously. Patient HAS had physical therapy recently. In addition to above, 13-point review of systems is also negative for chest pain , shortness of breath, changes in vision, changes in hearing, new onset weakness , abdominal pain, diarrhea, extreme fatigue, malaise, fever, skin changes, homicidal or suicidal ideation, or bowel or bladder incontinence. Vital Signs: Reviewed in EMR Gen: WDWN, AAOx3, NAD HEENT: NCAT, EOMI, hearing grossly normal Pulm: resp unlabored Abd: soft, NT, ND Neck: supple, trachea midline +thoracic facet tenderness bilateral ROM in flexion lumbar spine: reduced ROM in extension lumbar spine: reduced Lumbar paravertebral tenderness: + Facet loading: ++ bilateral, L > R SI joint tenderness: + L side Jong's test: + L side Straight leg raise: neg Neuro: CN II-XII grossly intact, muscle strength lower extremities grossly PRESERVED Past Medical History Past Medical History: Diabetes Mellitus, Hyperlipidemia, Hypertension Additional Past Medical History / Comment(s): HX CVA AND BRAIN ANERUYSM 2002, SOME MEMORY LOSS- STATES KRISTIAN IS ABLE TO SIGN OWN CONSENTS ; LAST SEIZURE >5 YR < 10 YRS AGO. RECENT RASH UNDER BREASTS, ABD APRON. STATES "HEART. FLATLINE X2 WHEN BRAIN ANEURYSM OCCURRED IN 2002",HIATAL HERNIA , BLEEDING WITH STOOLS. Last Myocardial Infarction Date:: 2002 History of Any Multi-Drug Resistant Organisms: None Reported Past Surgical History: Hernia Repair, Tubal Ligation Additional Past Surgical History / Comment(s): BRAIN STENT 2002. COLONOSCOPY 07/04/14,EGD, KYRA FUNDOPLASTY Past Anesthesia/Blood Transfusion Reactions: No Reported Reaction Smoking Status: Current every day smoker Past Alcohol Use History: None Reported Additional Past Alcohol Use History / Comment(s): STARTED SMOKING AT [employer]OX 18 Past Drug Use History: None Reported - Past Family History Brother(s) Family Medical History: Cancer Sister(s) Family Medical History: Cancer Medications and Allergies Home Medications Medication Instructions Recorded Confirmed Type levETIRAcetam [Keppra] 750 mg PO Q12H 05/09/14 01/25/17 History Lisinopril 2.5 mg PO DAILY 01/24/16 01/25/17 History sitaGLIPtin PHOS/metFORMIN HCL 1 tab PO DAILY 12/04/16 01/25/17 History [Janumet Xr 100-1,000 mg Tablet] Fluconazole [Diflucan] 150 mg PO DAILY #10 tab 12/09/16 01/25/17 Rx Atorvastatin Calcium [Lipitor] 20 mg PO DAILY 01/25/17 01/25/17 History Baclofen [Lioresal] 10 mg PO BID PRN #60 tablet 01/25/17 Rx Cetirizine HCl 10 mg PO DAILY 01/25/17 01/25/17 History Ibuprofen 800 mg PO TID PRN 01/25/17 01/25/17 History Naproxen [Naprosyn] 500 mg PO Q12HR #60 tab 01/25/17 Rx hydrOXYzine HCL [Atarax] 10 mg PO HS PRN 01/25/17 01/25/17 History Allergies Allergy/AdvReac Type Severity Reaction Status Date / Time Iodinated Contrast- Oral and Allergy Itching Verified 01/25/17 13:52 IV Dye [Iodinated Contrast Media - IV Dye] phenytoin sodium Allergy Rash/Hives. Verified 01/25/17 13:52 [From Dilantin] N & V phenytoin sodium extended Allergy Rash/Hives. Verified 01/25/17 13:52 [From Dilantin] N & V vancomycin Allergy Rash/Hives Verified 01/25/17 13:52 MYCIN ANTIBIOTICS Allergy Rash/Hives Uncoded 01/25/17 13:52 Physical Exam Vitals: Intake and Output 01/24/17 01/25/17 01/25/17 22:59 06:59 14:59 Other: Weight 81.647 kg Patient Weight 01/26/17 06:59 Weight 81.647 kg Results Comments: MRI of the lumbar spine dated 11/14/2016 demonstrates mild disc desiccation at the L2-L3 level. There is also a mild disc desiccation with a minimal posterior disc bulge at the L5-S1 level. Exam is otherwise unremarkable Assessment and Plan (1) DDD (degenerative disc disease), lumbar Status: Chronic (2) Bulging lumbar disc Status: Chronic Plan: 1. Explanation: Opioid and psychological risk scores were reviewed. Diagnoses , prognoses, and multiple treatment options including but not limited to physical therapy, interventional therapies, adjuvant medical therapies, narcotic medication therapies, and surgery were discussed with the patient and all questions were answered to the patient's satisfaction. 2. Opioid agreement: no opioids prescribed today 3. Counseling: The patient was counseled extensively on SMOKING CESSATION, BODY MASS INDEX, EXERCISE. Specifically, the patient was instructed regarding the importance of smoking cessation, weight control, and exercise in the context of both chronic pain and overall health. 4. Procedures: none for now, consider TPI in future 5. Consultations: none 6. Investigations: none 7. Medications: naproxen 500 mg #60 with one refill, baclofen 10 mg #60 with one refill 8. Disposition: f/u for re-eval in 6-8 weeks. MRI is essentially negative but patient does have some paraspinal tenderness on physical exam that appears to be muscular. If little relief, consider TPI. PQRS measures: 1-Patient's medications are documented in the chart. 2-Tobacco use is negative 3-Patient has not had a pneumococcal vaccine. 4-Advanced care planning discussed, patient unable to give. 5-Opioid contract NOT signed with the patient. 6-Pain positive, follow-up visit or procedure scheduled 7-Patient's blood pressure measured and documented, and patient will follow up with the primary care due to hypertension. 8-Patient's weight was measured, and body mass index ABOVE the normal limits, and counseling was done. Patient instructed to follow up with PCP. 9-Patient WAS NOT identified as an unhealthy alcohol user. Time with Patient: Greater than 30
== END | disposition home or self-care (01) ==
LOC: PNWHC3 13:31
PROVIDERS: ATTEND Anesthesiology
DX: M51.36 Other intervertebral disc degeneration, lumbar region (principal); M51.26 Other intervertebral disc displacement, lumbar region; E11.9 Type 2 diabetes mellitus without complications; E78.5 Hyperlipidemia, unspecified; I10 Essential (primary) hypertension; F17.200 Nicotine dependence, unspecified, uncomplicated; Z79.1 Long term (current) use of non-steroidal anti-inflammatories (NSAID); Z79.899 Other long term (current) drug therapy; Z91.048 Other nonmedicinal substance allergy status; Z88.8 Allergy status to other drugs, medicaments and biological substances; Z88.1 Allergy status to other antibiotic agents
CPT/HCPCS: 99211

== ENCOUNTER → 2017-03-27 | Outpatient (CLI) | payer MEDICARE, OTHER ==
[2017-03-27 14:13] VITALS: BP 103/71; PULSE 97; RESP 16; TEMP 97.7
--- NOTE | 2017-03-27 14:38 | P.PN ---
Progress Note - Text Progress Note Date: 03/27/17 This is a 56-year-old female with lower back pain with no radiation to the lower extremities. The patient's pain has been mild with occasional usage of Naprosyn and baclofen. I will refer the patient for physical therapy and I will continue her Naprosyn and baclofen as needed for her pain. She is alert oriented 3 in no apparent distress. She is obese. We will see the patient in 2 months for follow-up.
== END | disposition home or self-care (01) ==
LOC: PNWHC3 13:57
PROVIDERS: ATTEND Anesthesiology
DX: M54.5 Low back pain (principal)
CPT/HCPCS: 99211

== ENCOUNTER → 2018-01-22 | Outpatient (CLI) | payer MEDICARE, OTHER | END | disposition home or self-care (01) | LOC: LABWHC1 08:17 | PROVIDERS: ATTEND Psychiatry & Neurology Neurology | DX: G40.209 Localization-related (focal) (partial) symptomatic epilepsy and epileptic syndromes with complex partial seizures, not intractable, without status epilepticus (principal) | CPT/HCPCS: 36415; 80177 ==

== ENCOUNTER → 2018-05-03 | Outpatient (CLI) | payer MEDICARE, OTHER ==
--- NOTE | 2018-05-04 10:25 | MM ---
Reason for exam: screening (asymptomatic). Last mammogram was performed 2 years and 11 months ago. History: Family history of breast cancer in maternal grandmother and premenopausal breast cancer in sister at age 51. Physical Findings: A clinical breast exam by your physician is recommended on an annual basis and results should be correlated with mammographic findings. MG 3D Screening Mammo W/Cad Bilateral CC and MLO view(s) were taken. Prior study comparison: May 20, 2015, bilateral MG screening mammo w CAD. March 21, 2014, left breast MG work up mamm w CAD LT. There are scattered fibroglandular densities. There is no discrete abnormality. No significant changes when compared with prior studies. ASSESSMENT: Negative, BI-RAD 1 RECOMMENDATION: Routine screening mammogram of both breasts in 1 year.
== END | disposition home or self-care (01) ==
LOC: RADMAMWWP 12:49
PROVIDERS: ATTEND Family Medicine
DX: Z12.31 Encounter for screening mammogram for malignant neoplasm of breast (principal)
CPT/HCPCS: 77063; 77067

== ENCOUNTER → 2018-05-28 | Outpatient (CLI) | payer MEDICARE, OTHER ==
--- NOTE | 2018-05-28 10:14 | US ---
EXAMINATION TYPE: US kidneys/renal and bladder DATE OF EXAM: 05/28/2018 COMPARISON: US CLINICAL HISTORY: R77.0 Elevated micro albumin; diabetic; renal cyst EXAM MEASUREMENTS: Right Kidney: 11.0 x 6.3 x 4.8 cm Left Kidney: 10.5 x 5.8 x 4.1 cm Post Void Residual Volume: 141.1 mL Right Kidney: simple cyst lower pole = 5.9 x 5.8 x 4.8cm Left Kidney: No hydronephrosis or masses seen Bladder: wnl Bilateral Jets seen: yes Normal Post Void Residual: abnormal post void, as volume is greater than 50.0ml There is no evidence for hydronephrosis at this point in time. No nephrolithiasis is seen. The urina ry bladder is anechoic. Bilateral ureteral jets are seen. IMPRESSION: 1. Simple cyst right kidney. Abnormal post void residual.
== END ==
LOC: RADUSWWP 09:34
PROVIDERS: ATTEND Family Medicine
DX: N28.1 Cyst of kidney, acquired (principal)
CPT/HCPCS: 76770

== ENCOUNTER → 2018-12-13 | Outpatient (CLI) | payer MEDICARE, OTHER | LOC: LABWHC1 09:51 | PROVIDERS: ATTEND Psychiatry & Neurology Neurology | DX: Z79.899 Other long term (current) drug therapy (principal); G40.209 Localization-related (focal) (partial) symptomatic epilepsy and epileptic syndromes with complex partial seizures, not intractable, without status epilepticus | CPT/HCPCS: 36415; 80177; 82306 ==

== ENCOUNTER 2020-07-28 08:50 | Emergency (ER) | payer MEDICARE, OTHER ==
[2020-07-28 08:55] VITALS: BP 125/70; PULSE 91; RESP 16; TEMP 97.7
--- NOTE | 2020-07-28 09:10 | ED ---
General Adult HPI - General Chief complaint: Extremity Injury, Upper Stated complaint: Finger Pain Time Seen by Provider: 07/28/20 08:57 Source: patient, RN notes reviewed, old records reviewed Mode of arrival: ambulatory Limitations: no limitations - History of Present Illness Initial comments: 59-year-old female presenting with right thumb pain. Pain is been present for the past one week. She's noticed a clicking sensation at the distal joint. She denies redness. She does report some minimal swelling. She states that at times her thumb feels normal and then at other times it hurts. She was seen by her primary care physician yesterday. She denies any known injury. - Related Data Home Medications Medication Instructions Recorded Confirmed levETIRAcetam [Keppra] 750 mg PO Q12H 05/09/14 01/25/17 lisinopriL [Lisinopril] 2.5 mg PO DAILY 01/24/16 01/25/17 sitaGLIPtin PHOS/metFORMIN HCL 1 tab PO DAILY 12/04/16 01/25/17 [Janumet Xr 100-1,000 mg Tablet] Atorvastatin Calcium [Lipitor] 20 mg PO DAILY 01/25/17 01/25/17 Cetirizine HCl 10 mg PO DAILY 01/25/17 01/25/17 Ibuprofen 800 mg PO TID PRN 01/25/17 01/25/17 hydrOXYzine HCL [Atarax] 10 mg PO HS PRN 01/25/17 01/25/17 Previous Rx's Medication Instructions Recorded Fluconazole [Diflucan] 150 mg PO DAILY #10 tab 12/09/16 Baclofen [Lioresal] 10 mg PO BID PRN #60 tablet 01/25/17 Naproxen [Naprosyn] 500 mg PO Q12HR #60 tab 01/25/17 Allergies Allergy/AdvReac Type Severity Reaction Status Date / Time Iodinated Contrast Media Allergy Itching Verified 07/28/20 08:55 [Iodinated Contrast Media - IV Dye] phenytoin sodium Allergy Rash/Hives. Verified 07/28/20 08:55 [From Dilantin] N & V phenytoin sodium extended Allergy Rash/Hives. Verified 07/28/20 08:55 [From Dilantin] N & V vancomycin Allergy Rash/Hives Verified 07/28/20 08:55 MYCIN ANTIBIOTICS Allergy Rash/Hives Uncoded 07/28/20 08:55 Review of Systems ROS Statement: Those systems with pertinent positive or pertinent negative responses have been documented in the HPI. ROS Other: All systems not noted in ROS Statement are negative. Past Medical History Past Medical History: Diabetes Mellitus, Hyperlipidemia, Hypertension Additional Past Medical History / Comment(s): HX CVA AND BRAIN ANERUYSM 2002, SOME MEMORY LOSS- STATES KRISTIAN IS ABLE TO SIGN OWN CONSENTS ; LAST SEIZURE >5 YR < 10 YRS AGO. STATES "HEART FLATLINE X2 WHEN BRAIN ANEURYSM OCCURRED IN 2002",HIATAL HERNIA, BLEEDING WITH STOOLS. Last Myocardial Infarction Date:: 2002 History of Any Multi-Drug Resistant Organisms: None Reported Past Surgical History: Hernia Repair, Tubal Ligation Additional Past Surgical History / Comment(s): BRAIN STENT 2002. COLONOSCOPY 07/04/14,EGD, KYRA FUNDOPLASTY Past Anesthesia/Blood Transfusion Reactions: No Reported Reaction Past Psychological History: Anxiety, Depression Smoking Status: Current every day smoker Past Alcohol Use History: None Reported Past Drug Use History: None Reported - Past Family History Brother(s) Family Medical History: Cancer Sister(s) Family Medical History: Cancer General Exam Limitations: no limitations General appearance: alert, in no apparent distress Head exam: Present: atraumatic, normocephalic Eye exam: Present: normal appearance, PERRL Neck exam: Present: normal inspection Respiratory exam: Present: normal lung sounds bilaterally. Absent: respiratory distress, wheezes Cardiovascular Exam: Present: regular rate, normal rhythm GI/Abdominal exam: Present: soft. Absent: distended, tenderness Extremities exam: Present: other (Right hand: Refill less than 2 seconds, normal sensation, patient has a clicking sensation of the distal interphalangeal joint on the right thumb. This does appear to dislocated and then relocated spontaneously.) Neurological exam: Present: alert, oriented X3. Absent: motor sensory deficit, reflexes normal Course Vital Signs 07/28/20 08:52 Temperature 97.7 F Pulse Rate 91 Respiratory 16 Rate Blood Pressure 125/70 O2 Sat by Pulse 98 Oximetry Procedures - Orthopedic Splinting/Casting Injury #1 Side: right Upper Extremity Injury Location: finger Upper Extremity Immobilizer: aluminum form splint Additional Comments: Immobilization of the right thumb Medical Decision Making - Medical Decision Making X-ray negative for fracture or dislocation, normal distal interphalangeal joint. Disposition Clinical Impression: Subluxation of distal interphalangeal (DIP) joint of finger Disposition: HOME SELF-CARE Condition: Good Instructions (If sedation given, give patient instructions): Finger Dislocation (ED) Is patient prescribed a controlled substance at d/c from ED?: No Referrals: Mat Lua MD [Primary Care Provider] - 1-2 days Jorden Bolton DO [Doctor of Osteopathic Medicine] - 1-2 days Time of Disposition: 09:09
--- NOTE | 2020-07-28 09:39 | XR ---
EXAMINATION TYPE: XR finger RT DATE OF EXAM: 07/28/2020 COMPARISON: None HISTORY: Pain and swelling TECHNIQUE: 3 view right thumb FINDINGS: No acute fracture or dislocation is evident. Joint spaces are preserved. Soft tissues are n ormal. Follow-up exams can be performed 7-10 days from acute trauma for continued pain. IMPRESSION: 1. Normal three-view right thumb
== END 2020-07-28 09:54 | disposition home or self-care (01) ==
LOC: EC 08:50
DX: S63.121A Subluxation of interphalangeal joint of right thumb, initial encounter (principal); E11.9 Type 2 diabetes mellitus without complications; E78.5 Hyperlipidemia, unspecified; F17.200 Nicotine dependence, unspecified, uncomplicated; I10 Essential (primary) hypertension; Z79.84 Long term (current) use of oral hypoglycemic drugs; Z79.899 Other long term (current) drug therapy; Z88.1 Allergy status to other antibiotic agents; Z88.8 Allergy status to other drugs, medicaments and biological substances; Z91.041 Radiographic dye allergy status; Z98.51 Tubal ligation status; X58.XXXA Exposure to other specified factors, initial encounter
CPT/HCPCS: 99284

== ENCOUNTER 2020-12-29 15:35 | Emergency (ER) | payer MEDICARE, OTHER ==
[2020-12-29 15:49] VITALS: BP 101/60; PULSE 66; RESP 18; TEMP 97.9
[2020-12-29] MEDS ORDERED: methylPREDNISolone SOD SUCCI 125 MG/2 ML VIAL IM ONE (15:59)
--- NOTE | 2020-12-29 16:28 | XR ---
EXAMINATION TYPE: XR lumbar spine 2 or 3V DATE OF EXAM: 12/29/2020 CLINICAL HISTORY: pain TECHNIQUE: Three views of the lumbar spine are submitted. COMPARISON: 10/06/2016 FINDINGS: There are 5 lumbar type vertebral bodies identified. The lumbar spine shows satisfactory alignment w ithout evidence of acute fracture or dislocation. Vertebral body heights are within normal limits. Moderate degenerative disc space narrowing L4-5 and L5-S1. Loss of height of L5 of uncertain age and/ or etiology. The overlying soft tissue appears unremarkable. IMPRESSION: Loss of height of L5 of uncertain age and/or etiology.
--- NOTE | 2020-12-29 16:40 | ED ---
Extremity Problem HPI - General Chief complaint: Extremity Problem,Nontraumatic Stated complaint: L Hip Pain Time Seen by Provider: 12/29/20 15:56 Source: patient, RN notes reviewed Mode of arrival: ambulatory Limitations: no limitations - History of Present Illness Initial comments: 60-year-old female complaining of left lower back pain with radicular symptoms down the left leg. She notes that she's been go to the chiropractor with no relief. She denies any injury or trauma. She denied any saddle anesthesia bladder or bowel incontinence or retention. She notes that she's been dealing with this for the past several weeks her pain. She does have tenderness over her left lower back. She denied any chest pain shortness of breath headache nausea vomiting diarrhea constipation fever fatigue chills. - Related Data Home Medications Medication Instructions Recorded Confirmed levETIRAcetam [Keppra] 750 mg PO Q12H 05/09/14 01/25/17 lisinopriL [Lisinopril] 2.5 mg PO DAILY 01/24/16 01/25/17 sitaGLIPtin PHOS/metFORMIN HCL 1 tab PO DAILY 12/04/16 01/25/17 [Janumet Xr 100-1,000 mg Tablet] Atorvastatin Calcium [Lipitor] 20 mg PO DAILY 01/25/17 01/25/17 Cetirizine HCl 10 mg PO DAILY 01/25/17 01/25/17 Ibuprofen 800 mg PO TID PRN 01/25/17 01/25/17 hydrOXYzine HCL [Atarax] 10 mg PO HS PRN 01/25/17 01/25/17 Previous Rx's Medication Instructions Recorded Fluconazole [Diflucan] 150 mg PO DAILY #10 tab 12/09/16 Baclofen [Lioresal] 10 mg PO BID PRN #60 tablet 01/25/17 Naproxen [Naprosyn] 500 mg PO Q12HR #60 tab 01/25/17 Allergies Allergy/AdvReac Type Severity Reaction Status Date / Time Iodinated Contrast Media Allergy Itching Verified 12/29/20 15:48 [Iodinated Contrast Media - IV Dye] phenytoin sodium Allergy Rash/Hives. Verified 12/29/20 15:48 [From Dilantin] N & V phenytoin sodium extended Allergy Rash/Hives. Verified 12/29/20 15:48 [From Dilantin] N & V vancomycin Allergy Rash/Hives Verified 12/29/20 15:48 MYCIN ANTIBIOTICS Allergy Rash/Hives Uncoded 12/29/20 15:48 Review of Systems ROS Statement: Those systems with pertinent positive or pertinent negative responses have been documented in the HPI. ROS Other: All systems not noted in ROS Statement are negative. Past Medical History Past Medical History: Diabetes Mellitus, Hyperlipidemia, Hypertension Additional Past Medical History / Comment(s): HX CVA AND BRAIN ANERUYSM 2002, SOME MEMORY LOSS- STATES KRISTIAN IS ABLE TO SIGN OWN CONSENTS ; LAST SEIZURE >5 YR < 10 YRS AGO. STATES "HEART FLATLINE X2 WHEN BRAIN ANEURYSM OCCURRED IN 2002",HIATAL HERNIA, BLEEDING WITH STOOLS. Last Myocardial Infarction Date:: 2002 History of Any Multi-Drug Resistant Organisms: None Reported Past Surgical History: Hernia Repair, Tubal Ligation Additional Past Surgical History / Comment(s): BRAIN STENT 2002. COLONOSCOPY 07/04/14,EGD, KYRA FUNDOPLASTY Past Anesthesia/Blood Transfusion Reactions: No Reported Reaction Past Psychological History: Anxiety, Depression Smoking Status: Current every day smoker Past Alcohol Use History: None Reported Past Drug Use History: None Reported - Past Family History Brother(s) Family Medical History: Cancer Sister(s) Family Medical History: Cancer General Exam Limitations: no limitations General appearance: alert, in no apparent distress Head exam: Present: atraumatic, normocephalic, normal inspection Eye exam: Present: normal appearance, PERRL, EOMI. Absent: scleral icterus, conjunctival injection, periorbital swelling Neck exam: Present: normal inspection Respiratory exam: Present: normal lung sounds bilaterally. Absent: respiratory distress, wheezes, rales, rhonchi, stridor Cardiovascular Exam: Present: regular rate, normal rhythm, normal heart sounds. Absent: systolic murmur, diastolic murmur, rubs, gallop, clicks GI/Abdominal exam: Present: soft, normal bowel sounds. Absent: distended, tenderness, guarding, rebound, rigid Extremities exam: Present: normal inspection, full ROM, normal capillary refill. Absent: tenderness, pedal edema, joint swelling, calf tenderness Back exam: Present: normal inspection, tenderness (Left SI) Neurological exam: Present: alert, oriented X3 Psychiatric exam: Present: normal affect, normal mood Skin exam: Present: warm, dry, intact, normal color. Absent: rash Course Vital Signs 12/29/20 15:45 Temperature 97.9 F Pulse Rate 66 Respiratory 18 Rate Blood Pressure 101/60 O2 Sat by Pulse 97 Oximetry Medical Decision Making - Medical Decision Making 50-year-old female complaining of sciatica back pain that radiates down the left leg. 125 mg of Solu-Medrol, will x-ray lumbar spine ordered. X-ray lumbar spine get a for any acute osseous abnormality is. Patient was informed that she should follow up primary care and potentially get physical therapy prescription. Case discussed with Dr. Simons, patient can discharge home. - Radiology Data Radiology results: report reviewed, image reviewed Lumbar spine x-ray: Loss of height of L5 uncertain a general etiology. Disposition Clinical Impression: Sciatica, Lumbar radiculopathy Disposition: HOME SELF-CARE Condition: Stable Instructions (If sedation given, give patient instructions): Sciatica (ED), Lumbar Radiculopathy (ED) Additional Instructions: Please return to the Emergency Department if symptoms worsen or any other concerns. Follow-up with primary care in 1-2 days, potentially get prescription for physical therapy. Rest. Take Tylenol Motrin as needed for pain. Is patient prescribed a controlled substance at d/c from ED?: No Referrals: Mat Lua MD [Primary Care Provider] - 1-2 days Time of Disposition: 16:39
== END 2020-12-29 17:28 | disposition home or self-care (01) ==
LOC: EC 15:35
DX: M54.16 Radiculopathy, lumbar region (principal); M54.42 Lumbago with sciatica, left side; I10 Essential (primary) hypertension; E11.9 Type 2 diabetes mellitus without complications; E78.5 Hyperlipidemia, unspecified; F41.9 Anxiety disorder, unspecified; F32.9 Major depressive disorder, single episode, unspecified; F17.200 Nicotine dependence, unspecified, uncomplicated; Z98.51 Tubal ligation status; Z88.1 Allergy status to other antibiotic agents
CPT/HCPCS: 99283; 96372; 72100; J2930

== ENCOUNTER → 2021-02-27 | Outpatient (CLI) | payer MEDICARE, OTHER | END | disposition home or self-care (01) | LOC: LABWHC1 09:30 | PROVIDERS: ATTEND Psychiatry & Neurology Neurology | DX: G40.209 Localization-related (focal) (partial) symptomatic epilepsy and epileptic syndromes with complex partial seizures, not intractable, without status epilepticus (principal) | CPT/HCPCS: 36415; 80177 ==

== ENCOUNTER 2021-04-06 19:13 | Inpatient (IN) | payer MEDICARE, OTHER ==
--- NOTE | 2021-04-06 20:34 | XR ---
EXAMINATION TYPE: XR lumbar spine 2 or 3V DATE OF EXAM: 04/06/2021 COMPARISON: 12/29/2020 HISTORY: Back pain TECHNIQUE: 3 views FINDINGS: There is 20% compression deformity of L5 vertebra. There is L2 anterior wedging 30%. There is inferior vena cava filter. Sacroiliac joints are intact. Posterior elements appear intact. IMPRESSION: Compression fractures of L2 and L5 have progressed compared to old exam. There is also 70% anterior wedging of T12 vertebra that has progressed significantly compared to old exam.
[2021-04-06] MEDS ORDERED: SODIUM CHLORIDE 0.9% 1,000 ML IV STA (22:38)
[2021-04-06] MEDS ORDERED: MORPHINE SULFATE 4 MG/ML SYRINGE IV STA (22:38)
[2021-04-06] MEDS ORDERED: LORazepam 2 MG/ML INJ IV PRN (22:39)
[2021-04-06] MEDS ORDERED: NALOXONE 0.4 MG/ML 1 ML VIAL IV PRN (22:39)
[2021-04-06] MEDS ORDERED: ONDANSETRON 4 MG/2 ML VIAL IVP PRN (22:39)
--- NOTE | 2021-04-06 22:41 | ED ---
Back Pain HPI - General Chief Complaint: Back Pain/Injury Stated Complaint: back pain Time Seen by Provider: 04/06/21 22:03 Source: patient, RN notes reviewed, old records reviewed Limitations: no limitations - History of Present Illness Initial Comments: This is a 60-year-old female to the emergency department for evaluation today. Patient presents today for evaluation of worsening chronic back pain. History of back pain and back surgery. This pain is now debilitating the point where she can't walk she has no loss of bowel or bladder but does have severe pain. No recent trauma, no fevers. No neurological complaints MD Complaint: back pain, back injury, fall -: days(s) Similar Symptoms Previously: Yes Place: home Radiation: buttocks, left leg, right leg, flank Severity: severe Severity scale (1-10): 9 Quality: sharp, stabbing Consistency: constant Improves With: none Worsens With: none Context: while lifting, turning/twisting, bending Associated Symptoms: denies other symptoms Treatments Prior to Arrival: NSAIDS - Related Data Home Medications Medication Instructions Recorded Confirmed levETIRAcetam [Keppra] 750 mg PO BID 05/09/14 04/06/21 lisinopriL [Lisinopril] 2.5 mg PO DAILY 01/24/16 04/06/21 Atorvastatin Calcium [Lipitor] 20 mg PO DAILY 01/25/17 04/06/21 Docusate [Colace] 100 mg PO DAILY 04/06/21 04/06/21 Empagliflozin [Jardiance] 25 mg PO DAILY 04/06/21 04/06/21 Previous Rx's Medication Instructions Recorded Magnesium Hydroxide [Milk of 2,400 mg PO BID PRN ml 04/09/21 Magnesia Concentrate] oxyCODONE HCL [oxyCODONE HCL (IR)] 20 mg PO Q6H 10 Days #40 tab 04/09/21 Allergies Allergy/AdvReac Type Severity Reaction Status Date / Time Iodinated Contrast Media Allergy Itching Verified 12/29/20 15:48 [Iodinated Contrast Media - IV Dye] phenytoin sodium Allergy Rash/Hives. Verified 12/29/20 15:48 [From Dilantin] N & V phenytoin sodium extended Allergy Rash/Hives. Verified 12/29/20 15:48 [From Dilantin] N & V vancomycin Allergy Rash/Hives Verified 12/29/20 15:48 MYCIN ANTIBIOTICS Allergy Rash/Hives Uncoded 12/29/20 15:48 Review of Systems ROS Statement: Those systems with pertinent positive or pertinent negative responses have been documented in the HPI. ROS Other: All systems not noted in ROS Statement are negative. Past Medical History Past Medical History: Diabetes Mellitus, Hyperlipidemia, Hypertension Additional Past Medical History / Comment(s): HX CVA AND BRAIN ANERUYSM 2002, SOME MEMORY LOSS- STATES KRISTIAN IS ABLE TO SIGN OWN CONSENTS ; LAST SEIZURE >5 YR < 10 YRS AGO. STATES "HEART FLATLINE X2 WHEN BRAIN ANEURYSM OCCURRED IN 2002",HIATAL HERNIA, BLEEDING WITH STOOLS. Last Myocardial Infarction Date:: 2002 History of Any Multi-Drug Resistant Organisms: None Reported Past Surgical History: Hernia Repair, Tubal Ligation Additional Past Surgical History / Comment(s): BRAIN STENT 2002. COLONOSCOPY 07/04/14,EGD, KYRA FUNDOPLASTY Past Anesthesia/Blood Transfusion Reactions: No Reported Reaction Past Psychological History: Anxiety, Depression Smoking Status: Current every day smoker Past Alcohol Use History: None Reported Past Drug Use History: None Reported - Past Family History Brother(s) Family Medical History: Cancer Sister(s) Family Medical History: Cancer General Exam Limitations: no limitations General appearance: alert, in no apparent distress Head exam: Present: atraumatic, normocephalic, normal inspection Eye exam: Present: normal appearance, PERRL, EOMI. Absent: scleral icterus, conjunctival injection, periorbital swelling ENT exam: Present: normal exam, mucous membranes moist Neck exam: Present: normal inspection. Absent: tenderness, meningismus, lymphadenopathy Respiratory exam: Present: normal lung sounds bilaterally. Absent: respiratory distress, wheezes, rales, rhonchi, stridor Cardiovascular Exam: Present: regular rate, normal rhythm, normal heart sounds. Absent: systolic murmur, diastolic murmur, rubs, gallop, clicks GI/Abdominal exam: Present: soft, normal bowel sounds. Absent: distended, tenderness, guarding, rebound, rigid Extremities exam: Present: normal inspection, full ROM, normal capillary refill. Absent: tenderness, pedal edema, joint swelling, calf tenderness Back exam: Present: normal inspection Neurological exam: Present: alert, oriented X3, CN II-XII intact Psychiatric exam: Present: normal affect, normal mood Skin exam: Present: warm, dry, intact, normal color. Absent: rash Course Vital Signs 04/06/21 04/07/21 04/07/21 19:37 09:00 13:47 Temperature 98.8 F Pulse Rate 87 101 H 92 Respiratory 19 16 16 Rate Blood Pressure 110/72 119/69 128/71 O2 Sat by Pulse 95 93 L 93 L Oximetry - Reevaluation(s) Reevaluation #1: Medical record is reviewed Patient symptoms are significantly improved here in the ER Patient informed results and questions answered Medical Decision Making - Medical Decision Making 60 female to the ER today for evaluation of severe back pain acute on chronic back pain with worsening degenerative disc disease patient will be admitted for pain control and rehab - Lab Data Result diagrams: 04/07/21 05:12 04/07/21 05:12 Lab Results 04/06/21 04/06/21 04/06/21 Range/Units 23:45 23:45 23:45 WBC 12.3 H (3.8-10.6) k/uL RBC 5.26 (3.80-5.40) m/uL Hgb 16.6 H (11.4-16.0) gm/dL Hct 51.8 H (34.0-46.0) % MCV 98.4 (80.0-100.0) fL MCH 31.6 (25.0-35.0) pg MCHC 32.1 (31.0-37.0) g/dL RDW 13.8 (11.5-15.5) % Plt Count 236 (150-450) k/uL MPV 6.9 Neutrophils % 64 % Lymphocytes % 25 % Monocytes % 6 % Eosinophils % 3 % Basophils % 1 % Neutrophils # 7.8 H (1.3-7.7) k/uL Lymphocytes # 3.1 (1.0-4.8) k/uL Monocytes # 0.8 (0-1.0) k/uL Eosinophils # 0.4 (0-0.7) k/uL Basophils # 0.1 (0-0.2) k/uL PT 10.9 (9.0-12.0) sec INR 1.0 (<1.2) APTT 24.7 (22.0-30.0) sec Sodium 138 (137-145) mmol/L Potassium 4.3 (3.5-5.1) mmol/L Chloride 105 (98-107) mmol/L Carbon Dioxide 20 L (22-30) mmol/L Anion Gap 13 mmol/L BUN 23 H (7-17) mg/dL Creatinine 0.48 L (0.52-1.04) mg/dL Est GFR (CKD-EPI)AfAm >90 (>60 ml/min/1.73 sqM) Est GFR (CKD-EPI)NonAf >90 (>60 ml/min/1.73 sqM) Glucose 138 H (74-99) mg/dL POC Glucose (mg/dL) (75-99) mg/dL POC Glu [employer] ID Plasma Lactic Acid Larry (0.7-2.0) mmol/L Calcium 9.8 (8.4-10.2) mg/dL Phosphorus 4.6 H (2.5-4.5) mg/dL Magnesium 2.0 (1.6-2.3) mg/dL Total Bilirubin 0.5 (0.2-1.3) mg/dL AST 21 (14-36) U/L ALT 18 (4-34) U/L Alkaline Phosphatase 134 H (38-126) U/L Total Protein 7.7 (6.3-8.2) g/dL Albumin 4.3 (3.5-5.0) g/dL Urine Color Urine Appearance (Clear) Urine pH (5.0-8.0) Ur Specific [place] (1.001-1.035) Urine Protein (Negative) Urine Glucose (UA) (Negative) Urine Ketones (Negative) Urine Blood (Negative) Urine Nitrite (Negative) Urine Bilirubin (Negative) Urine Urobilinogen (<2.0) mg/dL Ur Leukocyte Esterase (Negative) Urine RBC (0-5) /hpf Urine WBC (0-5) /hpf Ur Squamous Epith Cells (0-4) /hpf Urine Bacteria (None) /hpf Hyaline Casts (0-2) /lpf Urine Mucus (None) /hpf Coronavirus (PCR) (Not Detectd) 04/06/21 04/06/21 04/07/21 Range/Units 23:45 23:45 05:12 WBC (3.8-10.6) k/uL RBC (3.80-5.40) m/uL Hgb (11.4-16.0) gm/dL Hct (34.0-46.0) % MCV (80.0-100.0) fL MCH (25.0-35.0) pg MCHC (31.0-37.0) g/dL RDW (11.5-15.5) % Plt Count (150-450) k/uL MPV Neutrophils % % Lymphocytes % % Monocytes % % Eosinophils % % Basophils % % Neutrophils # (1.3-7.7) k/uL Lymphocytes # (1.0-4.8) k/uL Monocytes # (0-1.0) k/uL Eosinophils # (0-0.7) k/uL Basophils # (0-0.2) k/uL PT (9.0-12.0) sec INR (<1.2) APTT (22.0-30.0) sec Sodium 138 (137-145) mmol/L Potassium 4.6 (3.5-5.1) mmol/L Chloride 108 H (98-107) mmol/L Carbon Dioxide 22 (22-30) mmol/L Anion Gap 8 mmol/L BUN 17 (7-17) mg/dL Creatinine 0.47 L (0.52-1.04) mg/dL Est GFR (CKD-EPI)AfAm >90 (>60 ml/min/1.73 sqM) Est GFR (CKD-EPI)NonAf >90 (>60 ml/min/1.73 sqM) Glucose 120 H (74-99) mg/dL POC Glucose (mg/dL) (75-99) mg/dL POC Glu [employer] ID Plasma Lactic Acid Larry 1.3 (0.7-2.0) mmol/L Calcium 9.0 (8.4-10.2) mg/dL Phosphorus 3.9 (2.5-4.5) mg/dL Magnesium 1.8 (1.6-2.3) mg/dL Total Bilirubin 0.6 (0.2-1.3) mg/dL AST 18 (14-36) U/L ALT 16 (4-34) U/L Alkaline Phosphatase 130 H (38-126) U/L Total Protein 6.9 (6.3-8.2) g/dL Albumin 3.7 (3.5-5.0) g/dL Urine Color Urine Appearance (Clear) Urine pH (5.0-8.0) Ur Specific [place] (1.001-1.035) Urine Protein (Negative) Urine Glucose (UA) (Negative) Urine Ketones (Negative) Urine Blood (Negative) Urine Nitrite (Negative) Urine Bilirubin (Negative) Urine Urobilinogen (<2.0) mg/dL Ur Leukocyte Esterase (Negative) Urine RBC (0-5) /hpf Urine WBC (0-5) /hpf Ur Squamous Epith Cells (0-4) /hpf Urine Bacteria (None) /hpf Hyaline Casts (0-2) /lpf Urine Mucus (None) /hpf Coronavirus (PCR) Not Detected (Not Detectd) 04/07/21 04/07/21 04/07/21 Range/Units 05:12 09:27 15:30 WBC 10.9 H (3.8-10.6) k/uL RBC 4.98 (3.80-5.40) m/uL Hgb 15.8 (11.4-16.0) gm/dL Hct 49.8 H (34.0-46.0) % MCV 99.9 (80.0-100.0) fL MCH 31.7 (25.0-35.0) pg MCHC 31.7 (31.0-37.0) g/dL RDW 13.2 (11.5-15.5) % Plt Count 226 (150-450) k/uL MPV 6.8 Neutrophils % 57 % Lymphocytes % 31 % Monocytes % 7 % Eosinophils % 3 % Basophils % 0 % Neutrophils # 6.2 (1.3-7.7) k/uL Lymphocytes # 3.3 (1.0-4.8) k/uL Monocytes # 0.8 (0-1.0) k/uL Eosinophils # 0.4 (0-0.7) k/uL Basophils # 0.1 (0-0.2) k/uL PT (9.0-12.0) sec INR (<1.2) APTT (22.0-30.0) sec Sodium (137-145) mmol/L Potassium (3.5-5.1) mmol/L Chloride (98-107) mmol/L Carbon Dioxide (22-30) mmol/L Anion Gap mmol/L BUN (7-17) mg/dL Creatinine (0.52-1.04) mg/dL Est GFR (CKD-EPI)AfAm (>60 ml/min/1.73 sqM) Est GFR (CKD-EPI)NonAf (>60 ml/min/1.73 sqM) Glucose (74-99) mg/dL POC Glucose (mg/dL) 105 H (75-99) mg/dL POC Glu [employer] ID Dejah Soni Plasma Lactic Acid Larry (0.7-2.0) mmol/L Calcium (8.4-10.2) mg/dL Phosphorus (2.5-4.5) mg/dL Magnesium (1.6-2.3) mg/dL Total Bilirubin (0.2-1.3) mg/dL AST (14-36) U/L ALT (4-34) U/L Alkaline Phosphatase (38-126) U/L Total Protein (6.3-8.2) g/dL Albumin (3.5-5.0) g/dL Urine Color Light Yellow Urine Appearance Clear (Clear) Urine pH 5.0 (5.0-8.0) Ur Specific [place] 1.014 (1.001-1.035) Urine Protein Negative (Negative) Urine Glucose (UA) 4+ H (Negative) Urine Ketones Trace H (Negative) Urine Blood Negative (Negative) Urine Nitrite Positive H (Negative) Urine Bilirubin Negative (Negative) Urine Urobilinogen <2.0 (<2.0) mg/dL Ur Leukocyte Esterase Trace H (Negative) Urine RBC 2 (0-5) /hpf Urine WBC 4 (0-5) /hpf Ur Squamous Epith Cells 1 (0-4) /hpf Urine Bacteria Moderate H (None) /hpf Hyaline Casts 1 (0-2) /lpf Urine Mucus Rare H (None) /hpf Coronavirus (PCR) (Not Detectd) 04/07/21 04/07/21 04/08/21 Range/Units 18:18 20:27 07:31 WBC (3.8-10.6) k/uL RBC (3.80-5.40) m/uL Hgb (11.4-16.0) gm/dL Hct (34.0-46.0) % MCV (80.0-100.0) fL MCH (25.0-35.0) pg MCHC (31.0-37.0) g/dL RDW (11.5-15.5) % Plt Count (150-450) k/uL MPV Neutrophils % % Lymphocytes % % Monocytes % % Eosinophils % % Basophils % % Neutrophils # (1.3-7.7) k/uL Lymphocytes # (1.0-4.8) k/uL Monocytes # (0-1.0) k/uL Eosinophils # (0-0.7) k/uL Basophils # (0-0.2) k/uL PT (9.0-12.0) sec INR (<1.2) APTT (22.0-30.0) sec Sodium (137-145) mmol/L Potassium (3.5-5.1) mmol/L Chloride (98-107) mmol/L Carbon Dioxide (22-30) mmol/L Anion Gap mmol/L BUN (7-17) mg/dL Creatinine (0.52-1.04) mg/dL Est GFR (CKD-EPI)AfAm (>60 ml/min/1.73 sqM) Est GFR (CKD-EPI)NonAf (>60 ml/min/1.73 sqM) Glucose (74-99) mg/dL POC Glucose (mg/dL) 123 H 170 H 92 (75-99) mg/dL POC Glu [employer] Gloria Estrada, Nicki Mills, Mary Plasma Lactic Acid Larry (0.7-2.0) mmol/L Calcium (8.4-10.2) mg/dL Phosphorus (2.5-4.5) mg/dL Magnesium (1.6-2.3) mg/dL Total Bilirubin (0.2-1.3) mg/dL AST (14-36) U/L ALT (4-34) U/L Alkaline Phosphatase (38-126) U/L Total Protein (6.3-8.2) g/dL Albumin (3.5-5.0) g/dL Urine Color Urine Appearance (Clear) Urine pH (5.0-8.0) Ur Specific [place] (1.001-1.035) Urine Protein (Negative) Urine Glucose (UA) (Negative) Urine Ketones (Negative) Urine Blood (Negative) Urine Nitrite (Negative) Urine Bilirubin (Negative) Urine Urobilinogen (<2.0) mg/dL Ur Leukocyte Esterase (Negative) Urine RBC (0-5) /hpf Urine WBC (0-5) /hpf Ur Squamous Epith Cells (0-4) /hpf Urine Bacteria (None) /hpf Hyaline Casts (0-2) /lpf Urine Mucus (None) /hpf Coronavirus (PCR) (Not Detectd) - Radiology Data Radiology results: report reviewed (X-ray lumbar spine is CT of lumbar spine show significant worsening degenerative disc disease), image reviewed Disposition Clinical Impression: Bulging lumbar disc, DDD (degenerative disc disease), lumbar, Lumbar compression fracture, Mid back pain, Lumbar radiculopathy Disposition: ADMITTED IP TO THIS HOSP Condition: Fair Is patient prescribed a controlled substance at d/c from ED?: No
[2021-04-06] MEDS ORDERED: LORazepam 2 MG/ML INJ ONE (23:00)
[2021-04-06] MEDS ORDERED: MORPHINE SULFATE 4 MG/ML SYRINGE ONE (23:00)
[2021-04-06] MEDS ORDERED: SODIUM CHLORIDE 0.9% 1,000 ML BAG ONE (23:00)
[2021-04-06] MEDS ORDERED: ONDANSETRON 4 MG/2 ML VIAL ONE (23:00)
[2021-04-07 03:54] LABS: ALT 18 U/L (4-34); AST 21 U/L (14-36); African American GFR (CKD) >90 (>60 ml/min/1.73 sqM); Albumin 4.3 g/dL (3.5-5.0); Alkaline Phosphatase 134 U/L (38-126); Anion Gap 13 mmol/L; Blood Urea Nitrogen 23 mg/dL (7-17); Calcium 9.8 mg/dL (8.4-10.2); Carbon Dioxide 20 mmol/L (22-30); Chloride 105 mmol/L (98-107); Glucose 138 mg/dL (74-99); Non-African American GFR(CKD) >90 (>60 ml/min/1.73 sqM); Phosphorus 4.6 mg/dL (2.5-4.5); Potassium 4.3 mmol/L (3.5-5.1); Sodium 138 mmol/L (137-145); Total Bilirubin 0.5 mg/dL (0.2-1.3); Total Protein 7.7 g/dL (6.3-8.2)
[2021-04-07 04:10] LABS: Partial Thromboplastin Time 24.7 sec (22.0-30.0); Prothrombin Time 10.9 sec (9.0-12.0)
--- NOTE | 2021-04-07 04:17 | CT ---
EXAM: CT Lumbar Spine Without Intravenous Contrast CLINICAL HISTORY: lower back pain, r/o fx TECHNIQUE: Axial computed tomography images of the lumbar spine without intravenous contrast. CTDI is 34.484 mGy and DLP is 1052.6 mGy-cm. This CT exam was performed using one or more of the following dose reduction techniques: automated exposure control, adjustment of the mA and/or kV according to patient size, and/or use of iterative reconstruction technique. COMPARISON: Lumbar spine series from December 29, 2020. FINDINGS: Vertebrae: T12 compression fracture with 70% loss of height and 2-3 mm posterior protrusion of fracture fragments. The spinal canal remains widely patent measuring 12-13 mm. This is new. L2 compression fracture with 50% loss of height. Mild posterior protrusion of fracture fragments is present. No spinal stenosis. This is new. Compression fracture of L5 with 85% loss of height centrally. No posterior protrusion of fracture fragments. This is significantly worse than previous. Discs/spinal canal/neural foramina: No acute findings. No spinal canal stenosis. Soft tissues: Unremarkable. Vasculature: There is an IVC filter in place. Kidneys and ureters: 5.7 cm simple cyst extending off the anterior aspect of the right kidney. No follow-up is necessary. IMPRESSION: 1. T12 compression fracture with 70% loss of height and 2-3 mm posterior protrusion of fracture fragments. The spinal canal remains widely patent measuring 12-13 mm. This is new. 2. L2 compression fracture with 50% loss of height. Mild posterior protrusion of fracture fragments is present. No spinal stenosis. This is new. 3. Compression fracture of L5 with 85% loss of height centrally. No posterior protrusion of fracture fragments. This is significantly worse than previous.
[2021-04-07] MEDS: SODIUM CHLORIDE 0.9% 1,000 ML IV SCH ×4 (04:20→20:31)
[2021-04-07 04:33] LABS: Basophils # (A) 0.1 k/uL (0-0.2); Basophils % (A) 1 %; Eosinophils # (A) 0.4 k/uL (0-0.7); Eosinophils % (A) 3 %; HCT 51.8 % (34.0-46.0); HGB 16.6 gm/dL (11.4-16.0); Lymphocytes # (A) 3.1 k/uL (1.0-4.8); Lymphocytes % (A) 25 %; MCH 31.6 pg (25.0-35.0); MCHC 32.1 g/dL (31.0-37.0); MCV 98.4 fL (80.0-100.0); Mean Platelet Volume 6.9; Monocytes # (A) 0.8 k/uL (0-1.0); Monocytes % (A) 6 %; Neutrophils # (A) 7.8 k/uL (1.3-7.7); Neutrophils % (A) 64 %; Platelet Count 236 k/uL (150-450); RBC 5.26 m/uL (3.80-5.40); RDW 13.8 % (11.5-15.5); WBC 12.3 k/uL (3.8-10.6)
[2021-04-07 06:22] LABS: Basophils # (A) 0.1 k/uL (0-0.2); Basophils % (A) 0 %; Eosinophils # (A) 0.4 k/uL (0-0.7); Eosinophils % (A) 3 %; HCT 49.8 % (34.0-46.0); HGB 15.8 gm/dL (11.4-16.0); Lymphocytes # (A) 3.3 k/uL (1.0-4.8); Lymphocytes % (A) 31 %; MCH 31.7 pg (25.0-35.0); MCHC 31.7 g/dL (31.0-37.0); MCV 99.9 fL (80.0-100.0); Mean Platelet Volume 6.8; Monocytes # (A) 0.8 k/uL (0-1.0); Monocytes % (A) 7 %; Neutrophils # (A) 6.2 k/uL (1.3-7.7); Neutrophils % (A) 57 %; Platelet Count 226 k/uL (150-450); RBC 4.98 m/uL (3.80-5.40); RDW 13.2 % (11.5-15.5); WBC 10.9 k/uL (3.8-10.6)
[2021-04-07 06:39] LABS: ALT 16 U/L (4-34); AST 18 U/L (14-36); African American GFR (CKD) >90 (>60 ml/min/1.73 sqM); Albumin 3.7 g/dL (3.5-5.0); Alkaline Phosphatase 130 U/L (38-126); Anion Gap 8 mmol/L; Blood Urea Nitrogen 17 mg/dL (7-17); Carbon Dioxide 22 mmol/L (22-30); Chloride 108 mmol/L (98-107); Glucose 120 mg/dL (74-99); Magnesium 1.8 mg/dL (1.6-2.3); Non-African American GFR(CKD) >90 (>60 ml/min/1.73 sqM); Phosphorus 3.9 mg/dL (2.5-4.5); Potassium 4.6 mmol/L (3.5-5.1); Sodium 138 mmol/L (137-145); Total Bilirubin 0.6 mg/dL (0.2-1.3); Total Protein 6.9 g/dL (6.3-8.2)
[2021-04-07] MEDS: MORPHINE SULFATE 4 MG/ML SYRINGE IV PRN ×3 (07:51→20:25)
[2021-04-07] MEDS: PANTOPRAZOLE 40 MG/10 ML VIAL IV SCH (08:19)
--- NOTE | 2021-04-07 08:36 | P.HPIM ---
History of Present Illness H&P Date: 04/07/21 Chief Complaint: Back pain This is a history and physical on a 60-year-old white female with known history of remote hemorrhagic CVA with seizures. The patient has been seizure-free but now has complaining of worsening back pain. Evaluation emergency room did show new onset compression fractures on top of old. There is significant spinal deformity. Worsening pain is noted. Underlying history of DDD in the past. No nausea. No numbness. No urinary or bowel incontinence stated. Underlying history of diabetes which is only moderately controlled Review of Systems Constitutional: Denies chills, Denies fever Eyes: denies blurred vision, denies pain Ears, nose, mouth and throat: Denies headache, Denies sore throat Cardiovascular: Denies chest pain, Denies shortness of breath Respiratory: Denies cough Gastrointestinal: Denies abdominal pain, Denies diarrhea, Denies nausea, Denies vomiting Genitourinary: Denies dysuria, Denies hematuria Musculoskeletal: Reports fractures, Reports low back pain, Denies myalgias Neurological: Reports weakness, Denies lack of coordination, Denies loss of vision, Denies memory loss, Denies numbness Psychiatric: Denies anxiety, Denies depression Past Medical History Past Medical History: CVA/TIA, Diabetes Mellitus, Hyperlipidemia, Hypertension Additional Past Medical History / Comment(s): HX CVA AND BRAIN ANERUYSM 2002, SOME MEMORY LOSS- STATES KRISTIAN IS ABLE TO SIGN OWN CONSENTS ; LAST SEIZURE >5 YR < 10 YRS AGO. STATES "HEART FLATLINE X2 WHEN BRAIN ANEURYSM OCCURRED IN 2002",HIATAL HERNIA, BLEEDING WITH STOOLS. Last Myocardial Infarction Date:: 2002 History of Any Multi-Drug Resistant Organisms: None Reported Past Surgical History: Hernia Repair, Tubal Ligation Additional Past Surgical History / Comment(s): BRAIN STENT 2002. COLONOSCOPY 07/04/14,EGD, KYRA FUNDOPLASTY Past Anesthesia/Blood Transfusion Reactions: No Reported Reaction Past Psychological History: Anxiety, Depression Smoking Status: Current every day smoker Past Alcohol Use History: None Reported Past Drug Use History: None Reported - Past Family History Brother(s) Family Medical History: Cancer Sister(s) Family Medical History: Cancer Medications and Allergies Home Medications Medication Instructions Recorded Confirmed Type levETIRAcetam [Keppra] 750 mg PO BID 05/09/14 04/06/21 History lisinopriL [Lisinopril] 2.5 mg PO DAILY 01/24/16 04/06/21 History sitaGLIPtin PHOS/metFORMIN HCL 1 tab PO W/SUPPER 12/04/16 04/06/21 History [Janumet Xr 100-1,000 mg Tablet] Atorvastatin Calcium [Lipitor] 20 mg PO DAILY 01/25/17 04/06/21 History Docusate [Colace] 100 mg PO DAILY 04/06/21 04/06/21 History Empagliflozin [Jardiance] 25 mg PO DAILY 04/06/21 04/06/21 History oxyCODONE-APAP 10-325MG [Percocet 1 tab PO QID 04/06/21 04/06/21 History 10-325 mg] Allergies Allergy/AdvReac Type Severity Reaction Status Date / Time Iodinated Contrast Media Allergy Itching Verified 12/29/20 15:48 [Iodinated Contrast Media - IV Dye] phenytoin sodium Allergy Rash/Hives. Verified 12/29/20 15:48 [From Dilantin] N & V phenytoin sodium extended Allergy Rash/Hives. Verified 12/29/20 15:48 [From Dilantin] N & V vancomycin Allergy Rash/Hives Verified 12/29/20 15:48 MYCIN ANTIBIOTICS Allergy Rash/Hives Uncoded 12/29/20 15:48 Physical Exam Vitals: Vital Signs Temp Pulse Resp BP Pulse Ox 04/06/21 19:37 98.8 F 87 19 110/72 95 Intake and Output 04/06/21 04/07/21 04/07/21 22:59 06:59 14:59 Other: Weight 77.111 kg - Constitutional General appearance: cooperative, mild distress, obese - EENT Eyes: EOMI - Neck Neck: no lymphadenopathy - Respiratory Respiratory: bilateral: CTA - Cardiovascular Rhythm: regular Heart sounds: normal: S1, S2 Abnormal Heart Sounds: no S3 Gallop - Gastrointestinal General gastrointestinal: soft, no tenderness - Integumentary Integumentary: no cellulitis Results CBC & Chem 7: 04/07/21 05:12 04/07/21 05:12 Labs: Abnormal Lab Results - Last 24 Hours (Table) 04/06/21 04/06/21 04/07/21 Range/Units 23:45 23:45 05:12 WBC 12.3 H (3.8-10.6) k/uL Hgb 16.6 H (11.4-16.0) gm/dL Hct 51.8 H (34.0-46.0) % Neutrophils # 7.8 H (1.3-7.7) k/uL Chloride 108 H (98-107) mmol/L Carbon Dioxide 20 L (22-30) mmol/L BUN 23 H (7-17) mg/dL Creatinine 0.48 L 0.47 L (0.52-1.04) mg/dL Glucose 138 H 120 H (74-99) mg/dL Phosphorus 4.6 H (2.5-4.5) mg/dL Alkaline Phosphatase 134 H 130 H (38-126) U/L 04/07/21 Range/Units 05:12 WBC 10.9 H (3.8-10.6) k/uL Hgb (11.4-16.0) gm/dL Hct 49.8 H (34.0-46.0) % Neutrophils # (1.3-7.7) k/uL Chloride (98-107) mmol/L Carbon Dioxide (22-30) mmol/L BUN (7-17) mg/dL Creatinine (0.52-1.04) mg/dL Glucose (74-99) mg/dL Phosphorus (2.5-4.5) mg/dL Alkaline Phosphatase (38-126) U/L Assessment and Plan (1) Lumbar compression fracture Current Visit: Yes Status: Acute Code(s): S32.000A - WEDGE COMPRESSION FRACTURE OF UNSP LUMBAR VERTEBRA, INIT SNOMED Code(s): 797468149 (2) Lumbar radiculopathy Current Visit: Yes Status: Acute Code(s): M54.16 - RADICULOPATHY, LUMBAR REGION SNOMED Code(s): 230720206 (3) DDD (degenerative disc disease), lumbar Current Visit: Yes Status: Chronic Code(s): M51.36 - OTHER INTERVERTEBRAL DI SC DEGENERATION, LUMBAR REGION SNOMED Code(s): 02537184 (4) CVA, old, cognitive deficits Current Visit: No Status: Acute Code(s): I69.31 - COGNITIVE DEFICITS FOLLOWING CEREBRAL INFARCT * DO NOT USE * SNOMED Code(s): 456136923830111 (5) Diabetes Current Visit: No Status: Acute Code(s): E11.9 - TYPE 2 DIABETES MELLITUS WITHOUT COMPLICATIONS SNOMED Code(s): 91678992 Plan: Admitted for pain control. Orthopedics consulted. Discussed osteoporotic treatments. Reconcile medications. She is a full code otherwise. Prognosis is guarded given the multiplicity of her back issues. She orders otherwise.
[2021-04-07] MEDS ORDERED: PATIENT'S OWN (Empagliflozin [Jardiance] 25 MG Tablet) PO SCH (09:00)
[2021-04-07 09:29] LABS: Glucose,Whole Blood 105 mg/dL (75-99)
[2021-04-07] MEDS: DOCUSATE 100 MG CAP PO SCH (09:30)
[2021-04-07] MEDS: ATORVASTATIN 20 MG TAB PO SCH (09:30)
[2021-04-07] MEDS: PATIENT'S OWN (Empagliflozin [Jardiance] 25 MG Tablet) PO SCH (12:16)
[2021-04-07 16:21] LABS: Appearance,Urine Clear (Clear); Bacteria,Urine Moderate /hpf; Bilirubin,Urine Negative (Negative); Blood,Urine Negative (Negative); Color,Urine Light Yellow; Glucose,Urine (UA) 4+ (Negative); Hyaline Casts,Urine 1 /lpf (0-2); Ketones,Urine Trace (Negative); Leukocyte Esterase,Urine Trace (Negative); Mucus,Urine Rare /hpf; Nitrite,Urine Positive (Negative); Protein,Urine Negative (Negative); RBC,Urine 2 /hpf (0-5); Specific Gravity,Urine 1.014 (1.001-1.035); Squamous Epithelial Cell,Urine 1 /hpf (0-4); Urobilinogen,Urine <2.0 mg/dL (<2.0); WBC,Urine 4 /hpf (0-5)
--- NOTE | 2021-04-07 17:00 | P.CNOR ---
History of Present Illness - [facility] Consult date: 04/07/21 Requesting physician: Arik Dubon Consult reason: fracture (T12, L2, and L5 depression fracture deformities), low back pain History of present illness: Patient is very pleasant 60-year-old female who is seen and examined at the bedside by myself and Dr. Lionel Aguiar with the patient's family with her. Patient has been experiencing worsening back pain over the past few weeks after lifting a pot of coffee. She states she had a severe pain at her back at that time. Her pain has worsened. Her pain is been uncontrollable the past 2 days. She presented to [facility] for further evaluation. She was found to have multiple compression fracture deformities at T12, L2, and L5. Previous imaging from November 2020 shows a compression fracture at L5 but this fracture has worsened. Patient states she has severe pain at her thoracolumbar spine which is worse with taking a deep breath, bending, twisting, and increased activities. Her pain is better controlled at rest. Her family states she has been using a walker to aid in ambulation over the past 6 months. At the bedside she states she has increased low back pain with active range of motion of bilateral lower extremities. She states she does not have any radiculopathy rest. She does notice some left leg pain with mobility of the left lower extremity. Movement of the lower extremities also exacerbates her low back pain. She denies any previous injury to her lumbar spine that she is aware of. She does not work outside the home. Patient has a past medical history which includes CVA and brain aneurysm in 2002, history of seizures, diabetes mellitus, hyperlipidemia, hypertension, and obesity. She is currently being seen and examined at Dr. Lua in medicine. She admits to smoking. Past Medical History Past Medical History: CVA/TIA, Diabetes Mellitus, GERD/Reflux, GI Bleed, Hyperlipidemia, Hypertension Additional Past Medical History / Comment(s): 2002 Brain aneurysm/CVA with some memory loss/flatlined as well/post cva seizure, NIDDM type II, lower GI bleed, panniculitis, breast cellulitis. Last Myocardial Infarction Date:: 2002 History of Any Multi-Drug Resistant Organisms: None Reported Past Surgical History: Hernia Repair, Tubal Ligation Additional Past Surgical History / Comment(s): 2002 Brain stent, EGD, colonoscopy, meghan fundloplication Past Anesthesia/Blood Transfusion Reactions: No Reported Reaction Smoking Status: Current every day smoker - Past Family History Brother(s) Family Medical History: Cancer Sister(s) Family Medical History: Cancer Additional Family Medical History / Comment(s): Breast cancer. Medications and Allergies Home Medications Medication Instructions Recorded Confirmed Type levETIRAcetam [Keppra] 750 mg PO BID 05/09/14 04/06/21 History lisinopriL [Lisinopril] 2.5 mg PO DAILY 01/24/16 04/06/21 History sitaGLIPtin PHOS/metFORMIN HCL 1 tab PO W/SUPPER 12/04/16 04/06/21 History [Janumet Xr 100-1,000 mg Tablet] Atorvastatin Calcium [Lipitor] 20 mg PO DAILY 01/25/17 04/06/21 History Docusate [Colace] 100 mg PO DAILY 04/06/21 04/06/21 History Empagliflozin [Jardiance] 25 mg PO DAILY 04/06/21 04/06/21 History oxyCODONE-APAP 10-325MG [Percocet 1 tab PO QID 04/06/21 04/06/21 History 10-325 mg] Allergies Allergy/AdvReac Type Severity Reaction Status Date / Time Iodinated Contrast Media Allergy Itching Verified 12/29/20 15:48 [Iodinated Contrast Media - IV Dye] phenytoin sodium Allergy Rash/Hives. Verified 12/29/20 15:48 [From Dilantin] N & V phenytoin sodium extended Allergy Rash/Hives. Verified 12/29/20 15:48 [From Dilantin] N & V vancomycin Allergy Rash/Hives Verified 12/29/20 15:48 MYCIN ANTIBIOTICS Allergy Rash/Hives Uncoded 12/29/20 15:48 Physical Examination Physical exam: Patient is awake, alert, and oriented 3 Vital signs stable Good chest excursion with deep inspiration and expiration Examination of thoracolumbar spine reveals skin is intact with no abrasions, lacerations, or bruises; no erythema, purulence or signs of infection Pain with rolling over in bed at her thoracolumbar spine Dorsiflexion and plantar flexion positive sustained bilaterally Patient does have difficulty lifting her legs off the bed independently bilaterally Active range of motion of the lower extremities exacerbates low back pain Active range of motion left lower extremity causes left lower extremity leg pain No signs or symptoms of DVT; no calf pain No pain with internal and external rotation of the hips bilaterally Neurovascularly intact Results Pertinent studies: X-ray of the lumbar spine taken on 04/06/2021: T12 compression fracture deformity with approximately 80% height loss; L1 compression fracture deformity with approximately 30% height loss; L5 compression fracture deformity of approximately 20% height loss which is worsening as compared to previous study taken on 12/29/2020; L4-5 degenerative disc disease; evidence of inferior vena cava filter placement - Labs Labs: Abnormal Lab Results - Last 24 Hours (Table) 04/06/21 04/06/21 04/07/21 Range/Units 23:45 23:45 05:12 WBC 12.3 H (3.8-10.6) k/uL Hgb 16.6 H (11.4-16.0) gm/dL Hct 51.8 H (34.0-46.0) % Neutrophils # 7.8 H (1.3-7.7) k/uL Chloride 108 H (98-107) mmol/L Carbon Dioxide 20 L (22-30) mmol/L BUN 23 H (7-17) mg/dL Creatinine 0.48 L 0.47 L (0.52-1.04) mg/dL Glucose 138 H 120 H (74-99) mg/dL POC Glucose (mg/dL) (75-99) mg/dL Phosphorus 4.6 H (2.5-4.5) mg/dL Alkaline Phosphatase 134 H 130 H (38-126) U/L Urine Glucose (UA) (Negative) Urine Ketones (Negative) Urine Nitrite (Negative) Ur Leukocyte Esterase (Negative) Urine Bacteria (None) /hpf Urine Mucus (None) /hpf 04/07/21 04/07/21 04/07/21 Range/Units 05:12 09:27 15:30 WBC 10.9 H (3.8-10.6) k/uL Hgb (11.4-16.0) gm/dL Hct 49.8 H (34.0-46.0) % Neutrophils # (1.3-7.7) k/uL Chloride (98-107) mmol/L Carbon Dioxide (22-30) mmol/L BUN (7-17) mg/dL Creatinine (0.52-1.04) mg/dL Glucose (74-99) mg/dL POC Glucose (mg/dL) 105 H (75-99) mg/dL Phosphorus (2.5-4.5) mg/dL Alkaline Phosphatase (38-126) U/L Urine Glucose (UA) 4+ H (Negative) Urine Ketones Trace H (Negative) Urine Nitrite Positive H (Negative) Ur Leukocyte Esterase Trace H (Negative) Urine Bacteria Moderate H (None) /hpf Urine Mucus Rare H (None) /hpf H & H 04/06/21 04/07/21 Range/Units 23:45 05:12 Hgb 16.6 H 15.8 (11.4-16.0) gm/dL Hct 51.8 H 49.8 H (34.0-46.0) % Coagulation 04/06/21 Range/Units 23:45 INR 1.0 (<1.2) Result Diagrams: 04/07/21 05:12 04/07/21 05:12 Assessment and Plan Assessment: Assessment: Acute thoracolumbar pain T12 compression fracture deformity at approximately 80% height loss L2 compression fracture deformity L5 worsening compression fracture deformity L4-5 degenerative disc disease Left lower extremity radiculopathy Generalized weakness lower extremities History of CVA History of brain aneurysm History of seizures Diabetes mellitus Hyperlipidemia Hypertension Nicotine use Overweight Inferior vena cava filter placement Difficulty of ambulation (1) Compression fracture of T12 vertebra Current Visit: Yes Status: Acute Code(s): S22.080A - WEDGE COMPRESSION FRACTURE OF T11-T12 VERTEBRA, INIT SNOMED Code(s): 120454328 (2) Compression fracture of L2 lumbar vertebra Current Visit: Yes Status: Acute Code(s): S32.020A - WEDGE COMPRESSION FRACTURE OF SECOND LUMBAR VERTEBRA, INIT SNOMED Code(s): 69984618517813158 (3) Compression fracture of L5 vertebra Current Visit: Yes Status: Acute Code(s): S32.050A - WEDGE COMPRESSION FRACTURE OF FIFTH LUMBAR VERTEBRA, INIT SNOMED Code(s): 304836968 (4) Degeneration of L4-L5 intervertebral disc Current Visit: Yes Status: Acute Code(s): M51.36 - OTHER INTERVERTEBRAL DISC DEGENERATION, LUMBAR REGION SNOMED Code(s): 64875708 (5) Thoracolumbar back pain Current Visit: Yes Status: Acute Code(s): M54.50 - LOW BACK PAIN, UNSPECIFIED; M54.6 - PAIN IN THORACIC SPINE SNOMED Code(s): 850041654 (6) History of CVA (cerebrovascular accident) Current Visit: Yes Status: Acute Code(s): Z86.73 - PRSNL HX OF TIA (TIA), AND CEREB INFRC W/O RESID DEFICITS SNOMED Code(s): 218122178 (7) Family history of brain aneurysm Current Visit: Yes Status: Acute Code(s): Z82.49 - FAMILY HX OF ISCHEM HEART DIS AND OTH DIS OF THE CIRC SYS SNOMED Code(s): 216103793 (8) History of seizure Current Visit: Yes Status: Acute Code(s): Z87.898 - PERSONAL HISTORY OF OTHER SPECIFIED CONDITIONS SNOMED Code(s): 884171948 (9) Hypertension Current Visit: Yes Status: Acute Code(s): I10 - ESSENTIAL (PRIMARY) HYPERTENSION SNOMED Code(s): 07437454 (10) Hyperlipidemia Current Visit: Yes Status: Acute Code(s): E78.5 - HYPERLIPIDEMIA, UNSPECIFIED SNOMED Code(s): 23988724 (11) Current smoker Current Visit: Yes Status: Acute Code(s): F17.200 - NICOTINE DEPENDENCE, UNSPECIFIED, UNCOMPLICATED SNOMED Code(s): 80678300 (12) Overweight (BMI 25.0-29.9) Current Visit: Yes Status: Acute Code(s): E66.3 - OVERWEIGHT SNOMED Code(s): 184574215 (13) Lumbar back pain with radiculopathy affecting left lower extremity Current Visit: Yes Status: Acute Code(s): M54.16 - RADICULOPATHY, LUMBAR REGION SNOMED Code(s): 653241361 (14) Diabetes Current Visit: No Status: Acute Code(s): E11.9 - TYPE 2 DIABETES MELLITUS WITHOUT COMPLICATIONS SNOMED Code(s): 14181977 Plan: Plan: 1. After reviewing of imaging, physical examination the patient, and further discussion with the patient, will currently plan to continue with conservative treatment at this time. Patient has multiple compression fracture deformities at T12, L2, and L5. The L5 compression fracture deformity was present on previous imaging from November 2020 but this fracture has worsened. Patient denies any specific injury to her thoracolumbar spine. Her pain is exacerbated with deep breathing, bending twisting, and increased activities. Patient states she would like to work to conservative treatment options. At this time we'll p chiquita for bracing. A prescription has been written and provided to case management for a Spinomed TLSO brace. Once this brace is delivered and fitted appropriately, patient should wear this brace while sitting upright at greater than 45, during increase activities, during ambulation. Brace does not have to or while lying in bed or while bathing. We will continue to follow patient. If her pain is not well controlled, we did discuss the possibility of surgical intervention at her lumbar spine. We did discuss the possibility of kyphoplasty at T12, L2, and L5. Also, given the multiple fractures at her thoracolumbar spine without injury, left lower extremity radiculopathy, and stated increased difficulty with ambulation over the past 6 months, we will plan to obtain MRI imaging of the lumbar spine for further evaluation. We will follow up with these MRI results to discuss the MRI results and to further discuss a plan of care proceeding forward. 2. Patient will continue be seen and examined by medicine for her other medical diagnoses. Time with Patient: Greater than 30 (Including obtaining history, physical examination, reviewing of imaging, and dictation.)
[2021-04-07] MEDS ORDERED: SITAGLIPTIN PHOS PO SCH (17:30)
[2021-04-07] MEDS ORDERED: [UNRECOGNIZED DRUG - OTHER] PO SCH (17:30)
[2021-04-07] MEDS ORDERED: METFORMIN HCL PO SCH (17:30)
[2021-04-07 18:19] LABS: Glucose,Whole Blood 123 mg/dL (75-99)
[2021-04-07] MEDS: INSULIN ASPART (NovoLOG) 100 UNIT/ML VIAL SQ SCH ×2 (18:19→20:53)
[2021-04-07] MEDS: metFORMIN 500 MG TAB PO SCH (18:25)
[2021-04-07] MEDS: LINAGLIPTIN 5 MG TABLET PO SCH (20:25)
[2021-04-07 20:28] LABS: Glucose,Whole Blood 170 mg/dL (75-99)
[2021-04-08] MEDS: MORPHINE SULFATE 4 MG/ML SYRINGE IV PRN ×3 (01:35→20:21)
[2021-04-08] MEDS: SODIUM CHLORIDE 0.9% 1,000 ML IV SCH ×3 (04:36→20:22)
[2021-04-08 07:37] LABS: Glucose,Whole Blood 92 mg/dL (75-99)
[2021-04-08] MEDS ORDERED: MAGNESIUM HYDROXIDE 2,400 MG/10 ML CUP PO PRN (08:12)
--- NOTE | 2021-04-08 08:14 | P.PN ---
Subjective Progress Note Date: 04/08/21 Principal diagnosis: Multiple back fractures At the patient essentially admitted for immobility related to multiple compression fractures. Orthopedic consult is noted. Conservative treatment with back brace will be instituted. She complains of constipation otherwise. Pain is otherwise nominal Objective - Vital Signs Vital signs: Vital Signs Temp 98.5 F 04/08/21 02:00 Pulse 83 04/08/21 02:00 Resp 16 04/08/21 02:00 BP 134/74 04/08/21 02:00 Pulse Ox 92 L 04/08/21 02:00 Intake & Output 04/07/21 04/08/21 04/08/21 18:59 06:59 18:59 Intake Total 260 Output Total 0 Balance 260 0 Weight 77.111 kg Intake: Oral 260 Output: Urine 0 Other: # Voids 2 - Constitutional General appearance: Present: no acute distress - EENT Eyes: Absent: abnormal pupil - Neck Neck: Absent: lymphadenopathy - Respiratory Respiratory: bilateral: CTA - Cardiovascular Rhythm: regular Heart sounds: normal: S1, S2 Abnormal Heart Sounds: Absent: S3 Gallop - Gastrointestinal General gastrointestinal: Present: soft. Absent: tenderness - Integumentary Integumentary: Absent: cellulitis - Labs CBC & Chem 7: 04/07/21 05:12 04/07/21 05:12 Labs: Abnormal Lab Results - Last 24 Hours (Table) 04/07/21 04/07/21 04/07/21 Range/Units 09:27 15:30 18:18 POC Glucose (mg/dL) 105 H 123 H (75-99) mg/dL Urine Glucose (UA) 4+ H (Negative) Urine Ketones Trace H (Negative) Urine Nitrite Positive H (Negative) Ur Leukocyte Esterase Trace H (Negative) Urine Bacteria Moderate H (None) /hpf Urine Mucus Rare H (None) /hpf 04/07/21 Range/Units 20:27 POC Glucose (mg/dL) 170 H (75-99) mg/dL Urine Glucose (UA) (Negative) Urine Ketones (Negative) Urine Nitrite (Negative) Ur Leukocyte Esterase (Negative) Urine Bacteria (None) /hpf Urine Mucus (None) /hpf Assessment and Plan (1) Lumbar compression fracture Current Visit: Yes Status: Acute Code(s): S32.000A - WEDGE COMPRESSION FRACTURE OF UNSP LUMBAR VERTEBRA, INIT SNOMED Code(s): 374771196 (2) Lumbar radiculopathy Current Visit: Yes Status: Acute Code(s): M54.16 - RADICULOPATHY, LUMBAR REGION SNOMED Code(s): 814002649 (3) DDD (degenerative disc disease), lumbar Current Visit: Yes Status: Chronic Code(s): M51.36 - OTHER INTERVERTEBRAL DISC DEGENERATION, LUMBAR REGION SNOMED Code(s): 52578701 (4) CVA, old, cognitive deficits Current Visit: No Status: Acute Code(s): I69.31 - COGNITIVE DEFICITS FOLLOWING CEREBRAL INFARCT * DO NOT USE * SNOMED Code(s): 442492687517276 (5) Diabetes Current Visit: No Status: Acute Code(s): E11.9 - TYPE 2 DIABETES MELLITUS WITHOUT COMPLICATIONS SNOMED Code(s): 89539863 Plan: Admitted for pain control. Appreciate orthopedic consult. Continue conservative management. Blood sugar control with magnesia constipation. Anticipate discharge in the next 24 hours once cleared by orthopedic
[2021-04-08] MEDS: INSULIN ASPART (NovoLOG) 100 UNIT/ML VIAL SQ SCH ×4 (08:51→20:22)
[2021-04-08] MEDS: metFORMIN 500 MG TAB PO SCH ×2 (08:56→17:45)
[2021-04-08] MEDS: DOCUSATE 100 MG CAP PO SCH (08:56)
[2021-04-08] MEDS: ATORVASTATIN 20 MG TAB PO SCH (08:56)
[2021-04-08] MEDS: PANTOPRAZOLE 40 MG/10 ML VIAL IV SCH (08:56)
[2021-04-08] MEDS: PATIENT'S OWN (Empagliflozin [Jardiance] 25 MG Tablet) PO SCH (08:56)
--- NOTE | 2021-04-08 10:44 | P.PN ---
Progress Note - Text Progress Note Date: 04/08/21 Attempted to see patient this morning at 10:40 AM. Patient is not in her room she is downstairs for testing in radiology. Her MRI is still pending. She is currently getting x-ray of her skull as well per medicine. I would like to review the results of her MRI given her multiple compression f ractures at T12 L2 and L5 with worsening and without specific trauma or fall. She does have a TLSO brace ordered and hopefully she can obtain that and utilize that for improving her mobilization and allow for appropriate healing for her thoracic and lumbar fractures. If she is not doing well with brace use over the next couple weeks she could be a candidate for surgical intervention with kyphoplasty. I discussed that with her yesterday and she would like to try conservative treatment for now. We will follow-up on her imaging and follow her closely
--- NOTE | 2021-04-08 11:06 | XR ---
Skull series HISTORY: Aneurysm Frontal and lateral views of the skull to 3 images, no comparisons Multiple metallic coils are present along the region of the suprasellar location anterior, possibly i n the distribution the anterior communicating artery suggestive of aneurysm embolization. Patient is edentulous. Bone mineralization is unremarkable. IMPRESSION: Aneurysm coils.
[2021-04-08 17:21] LABS: Glucose,Whole Blood 140 mg/dL (75-99)
[2021-04-08] MEDS: LINAGLIPTIN 5 MG TABLET PO SCH (17:45)
[2021-04-08 20:08] LABS: Glucose,Whole Blood 97 mg/dL (75-99)
[2021-04-09] MEDS: MORPHINE SULFATE 4 MG/ML SYRINGE IV PRN ×2 (01:38→07:55)
[2021-04-09] MEDS: SODIUM CHLORIDE 0.9% 1,000 ML IV SCH (04:57)
[2021-04-09] MEDS ORDERED: PANTOPRAZOLE 40 MG TABLET PO SCH (07:30)
[2021-04-09] MEDS: metFORMIN 500 MG TAB PO SCH (07:55)
[2021-04-09 08:03] LABS: Glucose,Whole Blood 112 mg/dL (75-99)
[2021-04-09 08:14] VITALS: BP 146/74; PULSE 86; RESP 18; TEMP 97.7
[2021-04-09] MEDS: INSULIN ASPART (NovoLOG) 100 UNIT/ML VIAL SQ SCH (08:38)
[2021-04-09] MEDS: PATIENT'S OWN (Empagliflozin [Jardiance] 25 MG Tablet) PO SCH (08:40)
[2021-04-09] MEDS: LINAGLIPTIN 5 MG TABLET PO SCH (08:41)
[2021-04-09] MEDS: ATORVASTATIN 20 MG TAB PO SCH (08:41)
[2021-04-09] MEDS: DOCUSATE 100 MG CAP PO SCH (08:41)
--- NOTE | 2021-04-09 08:51 | P.DS ---
Providers Date of admission: 04/08/21 14:22 Attending physician: Mat Lua Consults: 04/06/21 22:39 Consult Physician Routine Consulting Provider: Reji Saavedra Consult Reason/Comments: backFx,Pain Do you want consulting provider notified?: Yes Primary care physician: Mat Lua - Discharge Diagnosis(es) (1) Lumbar compression fracture Current Visit: Yes Status: Acute (2) Lumbar radiculopathy Current Visit: Yes Status: Acute (3) DDD (degenerative disc disease), lumbar Current Visit: Yes Status: Chronic (4) CVA, old, cognitive deficits Current Visit: No Status: Acute (5) Diabetes Current Visit: No Status: Acute Hospital Course: The patient is 60-year-old white female essentially admitted for multiple compression fractures. After significant surgical evaluation, she will be treated conservatively. She is agreeable to this at this time. Spoke with the surgical team and they agree at this time. Patient Condition at Discharge: Fair Plan - Discharge Summary Discharge Rx Participant: No New Discharge Prescriptions: New oxyCODONE HCL [oxyCODONE HCL (IR)] 20 mg PO Q6H 10 Days #40 tab Magnesium Hydroxide [Milk of Magnesia Concentrate] 2,400 mg PO BID PRN ml PRN Reason: Constipation Continue levETIRAcetam [Keppra] 750 mg PO BID lisinopriL [Lisinopril] 2.5 mg PO DAILY Atorvastatin Calcium [Lipitor] 20 mg PO DAILY Empagliflozin [Jardiance] 25 mg PO DAILY Docusate [Colace] 100 mg PO DAILY Discontinued sitaGLIPtin PHOS/metFORMIN HCL [Janumet Xr 100-1,000 mg Tablet] 1 tab PO W/SUPPER oxyCODONE-APAP 10-325MG [Percocet 10-325 mg] 1 tab PO QID Discharge Medication List levETIRAcetam [Keppra] 750 mg PO BID 05/09/14 [History] lisinopriL [Lisinopril] 2.5 mg PO DAILY 01/24/16 [History] Atorvastatin Calcium [Lipitor] 20 mg PO DAILY 01/25/17 [History] Docusate [Colace] 100 mg PO DAILY 04/06/21 [History] Empagliflozin [Jardiance] 25 mg PO DAILY 04/06/21 [History] Magnesium Hydroxide [Milk of Magnesia Concentrate] 2,400 mg PO BID PRN ml 04/09/21 [Rx] oxyCODONE HCL [oxyCODONE HCL (IR)] 20 mg PO Q6H 10 Days #40 tab 04/09/21 [Rx] Follow up Appointment(s)/Referral(s): Mat Lua MD [Primary Care Provider] - 1-2 days Discharge Disposition: HOME WITH HOME HEALTH SERVICES
--- NOTE | 2021-04-09 12:26 | P.PN ---
Progress Note - Text Progress Note Date: 04/09/21 Orthopedic spine: History of present illness: Patient is a pleasant 60-year-old female who is seen and examined the bedside. Evaluation regards to her thoracolumbar spine. She is known have multiple compression fracture deformities at T12, L2, and L5. Her TLSO brace has been delivered and fitted properly. Patient states the brace is comfortable. She has been wearing the brace with increased activities. She does have some generalized weakness with her lower extremities bilaterally. She continues receiving examined by medicine. Patient states she is eager for discharge home today. She feels her pain is well-controlled and would like to be discharged home today. We were planning to obtain MRI imaging of the lumbar spine but the patient has a history of brain aneurysm with coils placed in her brain at the time of surgical intervention. This was confirmed by x-ray imaging. Patient is unable to undergo MRI imaging. Medicine is planning to manage pain control the time of discharge. Physical exam: Patient is awake, alert, and oriented 3 Vital signs stable Good chest excursion with deep inspiration and expiration Examination of thoracolumbar spine reveals skin is intact with no abrasions, lacerations, or bruises; no erythema, purulence or signs of infection Pain with rolling over in bed at her thoracolumbar spine Dorsiflexion and plantar flexion positive sustained bilaterally Patient does have difficulty lifting her legs off the bed independently bilaterally Active range of motion of the lower extremities exacerbates low back pain Active range of motion left lower extremity causes left lower extremity leg pain No signs or symptoms of DVT; no calf pain No pain with internal and external rotation of the hips bilaterally Neurovascularly intact Pertinent studies: X-ray of the lumbar spine taken on 04/06/2021: T12 compression fracture deformity with approximately 80% height loss; L1 compression fracture deformity with approximately 30% height loss; L5 compression fracture deformity of approximately 20% height loss which is worsening as compared to previous study taken on 12/29/2020; L4-5 degenerative disc disease; evidence of inferior vena cava filter placement; Bones also appear thin and osteoporotic in addition to previously stated results Assessment: Acute thoracolumbar pain T12 compression fracture deformity at approximately 80% height loss L2 compression fracture deformity L5 worsening compression fracture deformity L4-5 degenerative disc disease Left lower extremity radiculopathy Osteoporosis Generalized weakness lower extremities History of CVA History of brain aneurysm with coil placement History of seizures Diabetes mellitus Hyperlipidemia Hypertension Nicotine use Overweight Inferior vena cava filter placement Difficulty of ambulation Plan: 1. After reviewing of imaging, physical examination the patient, and further discussion with the patient, will currently plan to continue with conservative treatment at this time. Patient has multiple compression fracture deformities at T12, L2, and L5. The L5 compression fracture deformity was present on previous imaging from November 2020 but this fracture has worsened. Patient denies any specific injury to her thoracolumbar spine. Her pain is exacerbated with deep breathing, bending twisting, and increased activities. Patient states she would like to work to conservative treatment options. At this time we'll plan for bracing. A prescription has been written and provided to case management for a [employer] TLSO brace. Brace has been delivered and fitted appropriately. Patient is wearing this brace without difficulty. She feels her pain is better controlled with his brace intact. Patient should wear this brace while sitting upright at greater than 45, during increase activities, during ambulation. Brace does not have to or while lying in bed or while bathing. We will continue to follow patient. If her pain is not well controlled, we did discuss the possibility of surgical intervention at her lumbar spine. We did discuss the possibility of kyphoplasty at T12, L2, and L5. Given the coils placed in her brain during treatment for her brain aneurysm, we other unable to obtain lumbar MRI imaging. We will plan to have her follow up in the office in approximately 2-3 weeks for further evaluation. Depending on her progress we will discuss further treatment options at that time including the possibility of further imaging. Patient may follow-up with Issac Mendoza PA-C or Dr. Lionel Aguiar at [facility] in 2-3 weeks following discharge. 2. Patient will continue be seen and examined by medicine for her other medical diagnoses.
== END 2021-04-09 10:57 | disposition home health service (06) | DRG 544 ==
LOC: EC 19:13 → 6NMEDSUR 22:41 → OBSVTOIN 04-08 14:22
PROVIDERS: ADMIT Family Medicine; ATTEND Family Medicine
DX: M48.54XA Collapsed vertebra, not elsewhere classified, thoracic region, initial encounter for fracture (principal); M48.56XA Collapsed vertebra, not elsewhere classified, lumbar region, initial encounter for fracture; M51.16 Intervertebral disc disorders with radiculopathy, lumbar region; E11.9 Type 2 diabetes mellitus without complications; Z87.19 Personal history of other diseases of the digestive system; I69.319 Unspecified symptoms and signs involving cognitive functions following cerebral infarction; E66.3 Overweight; M81.0 Age-related osteoporosis without current pathological fracture; Z68.28 Body mass index [BMI] 28.0-28.9, adult; E78.5 Hyperlipidemia, unspecified; I10 Essential (primary) hypertension; F17.210 Nicotine dependence, cigarettes, uncomplicated; K59.00 Constipation, unspecified; F32.A Depression, unspecified; F41.9 Anxiety disorder, unspecified; Z88.1 Allergy status to other antibiotic agents; I25.2 Old myocardial infarction; Z88.8 Allergy status to other drugs, medicaments and biological substances; Z91.041 Radiographic dye allergy status; Z79.84 Long term (current) use of oral hypoglycemic drugs; Z79.899 Other long term (current) drug therapy; Z98.51 Tubal ligation status; Z95.828 Presence of other vascular implants and grafts; Z87.898 Personal history of other specified conditions; Z86.79 Personal history of other diseases of the circulatory system; Z71.3 Dietary counseling and surveillance; Z20.822 Contact with and (suspected) exposure to COVID-19
CPT/HCPCS: 70250; 72100; 72131; 80053; 81001; 83605; 83735; 84100; 85025; 85610; 85730; 87635; 93005

== ENCOUNTER → 2021-12-10 | Outpatient (CLI) | payer MEDICARE, OTHER ==
--- NOTE | 2021-12-10 13:36 | BD ---
EXAMINATION TYPE: Axial Bone Density DATE OF EXAM: 12/10/2021 COMPARISON: FIRST DEXA AT [facility] CLINICAL HISTORY: 61 years year old Female. ICD-10 CODE: Z87.81 HX OF COMRESSION FX TO SPINE Height: 60IN Weight: 190 FRAX RISK QUESTIONS: Secondary Osteoporosis: Current Tobacco Use: YES RISK FACTORS HISTORY OF: Active: NO Diet low in dairy products/other sources of calcium: YES Postmenopausal woman: YES Poor Health: FAIR MEDICATIONS: Additional Medications: KEPRA, CARDIAC MEDS Additional History: EXAM MEASUREMENTS: Bone mineral densitometry was performed using the [employer] System. Bone mineral density as measured about the Lumbar spine is: ----- L1-L4(G/cm2): 0.845 T Score Values are as follows: ----- L1: -3.7 ----- L2: -3.0 ----- L3: -2.9 ----- L4: -1.8 ----- L1-L4: -2.8 FIRST DEXA AT [facility] Bone mineral density about the R hip (g/cm2): 0.581 Bone mineral density about the L hip (g/cm2): 0.600 T Score values are as follows: -----R Neck: -3.3 -----L Neck: -3.3 -----R Total: -3.4 -----L Total: -3.2 FIRST DEXA AT [facility] FRAX%s: The graph provided illustrates a 17.6% chance for a major osteoporotic fx and a 8.0% chance f or the hips probability for fx in 10 years time. IMPRESSION: Osteoporosis (T Score less than -2.5). There is increased fracture risk and therapy is usually indicated based on age. Re-Screen 1-2 years. NOTE: T-SCORE=SD OF THE YOUNG ADULT MEAN.
== END | disposition home or self-care (01) ==
LOC: RADBDWWP 12:47
PROVIDERS: ATTEND Psychiatry & Neurology Neurology
DX: M81.0 Age-related osteoporosis without current pathological fracture (principal); Z87.81 Personal history of (healed) traumatic fracture
CPT/HCPCS: 77080

== ENCOUNTER → 2021-12-11 | Outpatient (CLI) | payer MEDICARE, OTHER ==
[2021-12-11 18:24] LABS: Calcium 9.3 mg/dL (8.7-10.3)
== END | disposition home or self-care (01) ==
LOC: LABWHC1 09:37
PROVIDERS: ATTEND Psychiatry & Neurology Neurology
DX: G40.209 Localization-related (focal) (partial) symptomatic epilepsy and epileptic syndromes with complex partial seizures, not intractable, without status epilepticus (principal); Z87.81 Personal history of (healed) traumatic fracture; Z79.899 Other long term (current) drug therapy
CPT/HCPCS: 36415; 80177; 82306; 82310; 83036

== ENCOUNTER → 2022-03-11 | Outpatient (CLI) | payer MEDICARE, OTHER ==
--- NOTE | 2022-03-13 10:27 | US ---
EXAMINATION TYPE: US kidneys/renal and bladder DATE OF EXAM: 03/11/2022 COMPARISON: CLINICAL HISTORY: R77.0 ABNORMALITY OF ALBUMIN. Abnormal labs. Patient states having back pain. EXAM MEASUREMENTS: Right Kidney: 11.4 x 5.0 x 5.1 cm Left Kidney: 10.6 x 4.7 x 6.4 cm Right Kidney: Lower medial cystic lesion= 5.0 x 5.0 x 4.6 cm Left Kidney: No hydronephrosis or masses seen Bladder: Distended, anechoic Bilateral Jets seen There is no evidence for hydronephrosis at this point in time. No nephrolithiasis is seen. No kathleen s are identified. The urinary bladder is anechoic. Bilateral ureteral jets are seen. IMPRESSION: Simple cyst right kidney.
== END | disposition home or self-care (01) ==
LOC: RADUSWWP 12:19
PROVIDERS: ATTEND Family Medicine
DX: N28.1 Cyst of kidney, acquired (principal)
CPT/HCPCS: 76770

== ENCOUNTER → 2022-09-08 | Outpatient (CLI) | payer MEDICARE, OTHER | END | disposition home or self-care (01) | LOC: LABWHC1 13:28 | PROVIDERS: ATTEND Psychiatry & Neurology Neurology | DX: E11.40 Type 2 diabetes mellitus with diabetic neuropathy, unspecified (principal); G40.209 Localization-related (focal) (partial) symptomatic epilepsy and epileptic syndromes with complex partial seizures, not intractable, without status epilepticus; G62.9 Polyneuropathy, unspecified | CPT/HCPCS: 36415; 82306; 82607; 83036 ==

== ENCOUNTER → 2023-02-22 | Outpatient (CLI) | payer MEDICARE, OTHER | END | disposition home or self-care (01) | LOC: LABWHC1 11:45 | PROVIDERS: ATTEND Psychiatry & Neurology Neurology | DX: Z00.00 Encounter for general adult medical examination without abnormal findings (principal); G40.209 Localization-related (focal) (partial) symptomatic epilepsy and epileptic syndromes with complex partial seizures, not intractable, without status epilepticus | CPT/HCPCS: 36415; 80177 ==

== ENCOUNTER → 2023-07-11 | Outpatient (CLI) | payer MEDICARE, OTHER | END | disposition home or self-care (01) | LOC: LABWHC1 13:31 | PROVIDERS: ATTEND Psychiatry & Neurology Neurology | DX: G40.209 Localization-related (focal) (partial) symptomatic epilepsy and epileptic syndromes with complex partial seizures, not intractable, without status epilepticus (principal) | CPT/HCPCS: 36415; 80177 ==

== ENCOUNTER → 2023-07-11 | Outpatient (CLI) | payer MEDICARE, OTHER ==
--- NOTE | 2023-07-11 14:33 | XR ---
3 view lumbar spine and sacrum and coccyx. DATE: 07/11/2023. COMPARISON: None available. MEDICAL HISTORY: Low back pain. IMPRESSION: The vertebral bodies are well aligned without evidence of acute fracture, subluxation or dislocation. There is vertebral body height loss at L5, L3, L2 and T12 which is likely chronic. The bones are diff usely demineralized which somewhat limits evaluation. There is mild degenerative changes also seen within the SI joints bilaterally. Multilevel degenerativ e facet changes are seen throughout the spine.
--- NOTE | 2023-07-11 14:35 | XR ---
3 view right knee. DATE: 07/11/2023. COMPARISON: None available. Clinical history: Pain. FINDINGS: There is no fracture, subluxation or dislocation. There is mild medial, lateral and patellofemoral compartment joint space narrowing. The bones are dif fusely demineralized. There is no knee joint effusion. There is significant vascular calcification seen in the distal femoral region. IMPRESSION: Mild degenerative changes with no acute osseous abnormalities.
== END | disposition home or self-care (01) ==
LOC: RADXRMAIN 12:34
PROVIDERS: ATTEND Family Medicine
DX: M17.11 Unilateral primary osteoarthritis, right knee (principal); M46.1 Sacroiliitis, not elsewhere classified; M47.27 Other spondylosis with radiculopathy, lumbosacral region
CPT/HCPCS: 72100; 72220